=== PATIENT | male | born 1985 | race Caucasian/White ===

== ENCOUNTER 2023-05-05 15:39 | Emergency (ER) | payer OTHER, SELFPAY ==
[2023-05-05 15:43] VITALS: BP 125/72; PULSE 88; RESP 18; TEMP 36.1; O2SAT 97
--- NOTE | 2023-05-05 16:11 | ED_ITS ---
Documented by User: EVANGELIST Gonsales 05/05/23 16:14 HPI - Skin/Abscess/Foreign Bdy General Chief complaint: Skin/Abscess/Foreign Body Stated complaint: RASH Time Seen by Provider: 05/05/23 16:02 Source: patient Mode of arrival: walk-in Limitations: no limitations History of Present Illness HPI narrative: patient is a 37-year-old male presents to the Emergency Room with concerns of pruritic rash. Patient states symptoms started one week ago. He believes he was working outside with [employer] at the time. Notes lesions have not resolved. Denies fevers or chills. States he's been using some topicals with minimal to no relief typically works in a warm sweaty environment. Denies any difficulty breathing or shortness of breath. Patient appears in no distress. MD complaint: Reports rash Location: Denies generalized Quality: Reports pruritic Relieving factors: Reports cold therapy Exacerbating factors: Reports none Context: Reports none Treatments prior to arrival: Reports none Related Data Home Medications Medication Instructions Recorded Confirmed No Known Home Medications 05/05/23 05/05/23 Previous Rx's Medication Instructions Recorded prednisone 20 mg tablet 20 mg PO DAILY 10 days #10 tabs 05/05/23 Allergies Allergy/AdvReac Type Severity Reaction Status Date / Time amoxicillin Allergy Intermediate Verified 05/05/23 15:46 ampicillin Allergy Intermediate Verified 05/05/23 15:46 Penicillins Allergy Intermediate Verified 05/05/23 15:46 Review of Systems ROS Constitutional Denies: fever or chills Eyes Denies: change in vision Ears, nose, mouth, and throat Denies: throat pain or neck pain Cardiovascular Denies: chest pain or palpitations Respiratory Denies: shortness of breath Gastrointestinal Denies: abdominal pain or nausea Musculoskeletal Denies: back pain or neck pain Integumentary/Breast Reports: rash; Denies: itching Neurological Denies: headache Psychiatric Denies: anxiety Endocrine Denies: excessive urination Exam Narrative Exam Narrative: Vital Signs and nurse's notes are reviewed. The patient is not hypoxic. General: Alert, no acute distress, patient resting comfortably Skin: warm, intact, no pallor noted. The patient has evidence wispy erythema tous slightly raised rash, no evidence of cellulitis, distribution consistent with likely plan dermatitis. Involving bilateral forearms, proximal humerus bilaterally.. The patient has no evidence of petechiae, purpura, or vesicles. The patient has no sloughing of the skin. The patient does have blanching noted. The patient has no involvement of the palms, soles, or oral mucosa. Head: Normocephalic, atraumatic Eye: Normal conjunctiva, No exudates Ears, nose, throat: moist mucous membranes, there is no involvement of the oral mucosa, there is no lip or tongue swelling. The patient has airway patent. The patient has no tonsillar hypertrophy or swelling to the posterior oropharynx. No evidence of Vesicles. Neck: The patient has no masses, warmth, or erythema. The patient has no meningeal signs. The patient has no nuchal rigidity noted. Cardiovascular: Regular Rate and Rhythm Respiratory: No acute distress, tachypnea, mild rhonchi and wheezing noted in bilateral lung alaniz. No round noted. No retractions or stridor. Abdomen:denies abdominal pain Musculoskeletal: Normal range of motion, no calf tenderness noted bilaterally, no edema noted. Negative Cliff's sign bilaterally. no evidence of cyanosis or mottling noted to the extremities. Pulses intact. Neurological: alert and oriented x4, normal speech, normal motor, normal sensory Psychiatric: Cooperative Constitutional Vital Signs, click to edit/add: Last Vital Signs Temp 97 F L 05/05/23 15:43 Pulse 88 05/05/23 15:43 Resp 18 05/05/23 15:43 BP 125/72 05/05/23 15:43 Pulse Ox 97 05/05/23 15:43 O2 Del Method Room Air 05/05/23 15:43 Course Vital Signs Vital signs: Vital Signs Temperature 97 F L 05/05/23 15:43 Pulse Rate 88 05/05/23 15:43 Respiratory Rate 18 05/05/23 15:43 Blood Pressure 125/72 05/05/23 15:43 Pulse Oximetry 97 05/05/23 15:43 Oxygen Delivery Method Room Air 05/05/23 15:43 Temperature 97 F L 05/05/23 15:43 Pulse Rate 88 05/05/23 15:43 Respiratory Rate 18 05/05/23 15:43 Blood Pressure 125/72 05/05/23 15:43 Pulse Oximetry 97 05/05/23 15:43 Oxygen Delivery Method Room Air 05/05/23 15:43 MDM - Skin/Abscess/Foreign Bdy MDM Narrative Medical decision making narrative: discussed presentation. Patient consistent with plan dermatitis. Recommend washing any clothes of oil that he is working with. caution with [id number] anti-itch medication which may cause sedation while he is wo rking. Patient agreeable to a prednisone taper. Given 1st dose here, will take two tabs a day for five days and one tablet day for five days. Total #15 tabs. This was communicated to the pharmacy verbally in addition to the electronic prescription. Patient thankful. The patient is to followup with primary care physician in next 2-3 days or to return to the emergency department should any of the signs or symptoms worsen or new symptoms develop. Patient had questions answered. The patient agrees with the following Diagnosis and Treatment plan and the patient will be discharged home. Discharge Plan Discharge Chief Complaint: Skin/Abscess/Foreign Body Clinical Impression: Allergic dermatitis due to poison maureen Patient Disposition: Home, Self-Care Time of Disposition Decision: 16:07 Condition: Good Prescriptions / Home Meds: New prednisone 20 mg tablet 20 mg PO DAILY 10 Days Qty: 10 0RF Rx Instructions: 2 tabs daily for 5 days then 1 tab daily for 5 days No Action No Known Home Medications Instructions: Poison Maureen (ED) Stand Alone Forms: Portal Instructions Referrals: Davonte Kohler MD [Primary Care Provider] - 1 week Discharge Date/Time: 05/05/23 16:18 Documented by User: Rae Geiger MD 05/05/23 17:49 HPI - Skin/Abscess/Foreign Bdy General Chief complaint: Skin/Abscess/Foreign Body Stated complaint: RASH Time Seen by Provider: 05/05/23 16:02 Related Data Home Medications Medication Instructions Recorded Confirmed No Known Home Medications 05/05/23 05/05/23 Previous Rx's Medication Instructions Recorded prednisone 20 mg tablet 20 mg PO DAILY 10 days #10 tabs 05/05/23 Allergies Allergy/AdvReac Type Severity Reaction Status Date / Time amoxicillin Allergy Intermediate Verified 05/05/23 15:46 ampicillin Allergy Intermediate Verified 05/05/23 15:46 Penicillins Allergy Intermediate Verified 05/05/23 15:46 Exam Constitutional Vital Signs, click to edit/add: Last Vital Signs Temp 97 F L 05/05/23 15:43 Pulse 88 05/05/23 15:43 Resp 18 05/05/23 15:43 BP 125/72 05/05/23 15:43 Pulse Ox 97 05/05/23 15:43 O2 Del Method Room Air 05/05/23 15:43 Course Vital Signs Vital signs: Vital Signs Temperature 97 F L 05/05/23 15:43 Pulse Rate 88 05/05/23 15:43 Respiratory Rate 18 05/05/23 15:43 Blood Pressure 125/72 05/05/23 15:43 Pulse Oximetry 97 05/05/23 15:43 Oxygen Delivery Method Room Air 05/05/23 15:43 Temperature 97 F L 05/05/23 15:43 Pulse Rate 88 05/05/23 15:43 Respiratory Rate 18 05/05/23 15:43 Blood Pressure 125/72 05/05/23 15:43 Pulse Oximetry 97 05/05/23 15:43 Oxygen Delivery Method Room Air 05/05/23 15:43 MDM - Skin/Abscess/Foreign Bdy MDM Narrative Medical decision making narrative: discussed presentation. Patient consistent with plan dermatitis. Recommend washing any clothes of oil that he is working with. caution with [id number] anti-itch medication which may cause sedation while he is working. Patient agreeable to a prednisone taper. Given 1st dose here, will take two tabs a day for five days and one tablet day for five days. Total #15 tabs. This was communicated to the pharmacy verbally in addition to the electronic prescription. Patient thankful. The patient is to followup with primary care physician in next 2-3 days or to return to the emergency department should any of the signs or symptoms worsen or new symptoms develop. Patient had questions answered. The patient agrees with the following Diagnosis and Treatment plan and the patient will be discharged home. Attending physician attestation I have reviewed the mid-level documentation, agree with the documentation, medical decision making and treatment plan as outlined by the mid-level provider. Discharge Plan Discharge Chief Complaint: Skin/Abscess/Foreign Body Clinical Impression: Allergic dermatitis due to poison maureen Patient Disposition: Home, Self-Care Time of Disposition Decision: 16:07 Condition: Good Prescriptions / Home Meds: New prednisone 20 mg tablet 20 mg PO DAILY 10 Days Qty: 10 0RF Rx Instructions: 2 tabs daily for 5 days then 1 tab daily for 5 days No Action No Known Home Medications Instructions: Poison Maureen (ED) Stand Alone Forms: Portal Instructions Referrals: Davonte Kohler MD [Primary Care Provider] - 1 week Discharge Date/Time: 05/05/23 16:18
[2023-05-05] MEDS: PREDNISONE 20 MG TABLET 60 MG PO (16:17)
== END 2023-05-05 16:18 | disposition home or self-care (01) ==
PROVIDERS: Emergency Provider Emergency Medicine; PCP Family Medicine
DX: L23.7 Allergic contact dermatitis due to plants, except food (principal)
CPT/HCPCS: 99283

== ENCOUNTER 2023-05-27 06:46 | Outpatient (OUT) | payer OTHER, SELFPAY ==
[2023-05-27 07:04] LABS: Basophils Absolute Auto 0.1 10^3/uL (0.0-0.1); Basophils Percent Auto 0.5 % (0.2-2.0); Eosinophils Absolute Auto 0.3 10^3/uL (0.0-0.7); Eosinophils Percent Auto 3.1 % (0.9-7.0); Hematocrit 42.9 % (42.0-54.0); Hemoglobin 14.3 g/dL (14.0-18.0); Immature Granulocytes Abs Auto 0.01 10^3/uL (0.00-0.03); Immature Granulocytes Pct Auto 0.1 % (0.0-0.5); Lymphocytes Absolute Auto 2.9 10^3/uL (1.2-3.8); Lymphocytes Percent Auto 32.1 % (20.5-60.0); Mean Corpuscular HGB Conc 33.3 g/dL (29.9-35.2); Mean Corpuscular Hemoglobin 29.3 pg (25.9-34.0); Mean Corpuscular Volume 87.9 fL (80.0-94.0); Mean Platelet Volume 9.9 fL (9.5-13.5); Monocytes Absolute Auto 0.6 10^3/uL (0.3-0.8); Neutrophils Absolute Auto 5.3 10^3/uL (1.4-6.5); Neutrophils Percent Auto 58.2 % (43.0-75.0); Platelet Count 220 10^3/uL (150-450); Red Blood Count 4.88 10^6/uL (4.70-6.10); Red Cell Distribution Width 13.6 % (11.0-15.0); White Blood Count 9.1 10^3/uL (4.0-11.0)
[2023-05-27 07:33] LABS: Estimated Average Glucose 88 mg/dL; Glycohemoglobin A1C 4.7 % (4.5-6.2)
[2023-05-27 07:44] LABS: Alanine Aminotransferase 24 U/L (16-63); Albumin Globulin Ratio 1.1; Alkaline Phosphatase 70 U/L (46-116); Aspartate Amino Transferase 16 U/L (15-37); BUN Creatinine Ratio 8.6; Bilirubin Direct 0.1 mg/dL (0.0-0.2); Bilirubin Total 0.4 mg/dL (0.2-1.0); Calcium 9.6 mg/dL (8.5-10.1); Carbon Dioxide 29.9 mmol/L (21.0-32.0); Chloride 104 mmol/L (98-107); Chol HDL Ratio 3.9; Cholesterol 184 mg/dL (<=200); Estimated GFR (African America >60 (>=60); Estimated GFR (Non-African Ame >60 (>=60); Globulin 3.6 g/dL; Glucose 102 mg/dL (74-106); HDL Cholesterol 47 mg/dL (40-60); LDL Cholesterol Calculated 126.8 mg/dL; Potassium 3.9 mmol/L (3.5-5.1); Sodium 139 mmol/L (136-145); Thyroid Stimulating Hormone 2.297 uIU/mL (0.358-3.740); Total Protein 7.6 g/dL (6.4-8.2); Triglycerides 51 mg/dL (<=150); VLDL CHOLESTEROL 10.2 mg/dL
== END 2023-05-27 06:47 | disposition home or self-care (01) ==
LOC: LAB 06:46
PROVIDERS: PCP Family Medicine; Visit Provider Family Medicine
DX: Z00.00 Encounter for general adult medical examination without abnormal findings (principal)
CPT/HCPCS: 36415; 80048; 80061; 80076; 83036; 84443; 85025

== ENCOUNTER 2023-08-13 11:39 | Emergency (ER) | payer OTHER, SELFPAY ==
[2023-08-13 11:46] VITALS: BP 149/87; PULSE 72; RESP 18; TEMP 37.3; O2SAT 100; BMI 25.1
[2023-08-13 12:16] LABS: Bilirubin Urine NEGATIVE (NEGATIVE); Blood Urine LARGE (NEGATIVE); Clarity Urine CLEAR (CLEAR); Color Urine RED (YELLOW); Glucose Urine UA NEGATIVE (NEGATIVE); Ketones Urine NEGATIVE (NEGATIVE); Leukocyte Esterase Urine NEGATIVE (NEGATIVE); Nitrite Urine NEGATIVE (NEGATIVE); Protein Urine TRACE mg/dL (NEG/TRACE); Specific Gravity Urine 1.025 (1.005-1.025)
[2023-08-13 12:17] LABS: Urine Microscopic Indicated YES
[2023-08-13 12:21] LABS: WBC Urine NONE SEEN #/HPF (NONE SEEN)
[2023-08-13 12:22] LABS: Bacteria Urine NONE SEEN #/HPF (NONE SEEN); Cast Seen? NONE SEEN #/LPF (NONE SEEN); Crystals Seen? None Seen #/HPF (None Seen); Mucus Urine NONE SEEN (NONE SEEN); RBC Urine >100 #/HPF (0-2); Squamous Epithelial Cell Urine RARE #/LPF (NONE/RARE); Urine Culture Indicated NO
[2023-08-13 13:09] VITALS: BP 129/65; PULSE 85; RESP 18; O2SAT 98
--- NOTE | 2023-08-13 13:56 | CT_ITS ---
The [address] [address] Patient Name: MECCA ABRAHAM MRN: [id number] date: 1985 Sex: M Assigned Patient Location: ER Current Patient Location: Accession/Order Number: [id number] Exam Date: 08/13/2023 13:50 Report Date: 08/13/2023 15:07 At the request of: ROSA HERNANDEZ Procedure: CT abdomen pelvis wo con EXAM: CT abdomen pelvis wo con 08/13/2023 COMPARISON STUDY: None TECHNIQUE: 3 mm sections were obtained from the lung bases through the pubic symphysis without use of contrast. Coronal and sagittal reconstructed images were obtained HISTORY: flank pain and hematuria CT ABDOMEN: Heart size is normal. Lung bases are clear. Liver, gallbladder, spleen, pancreas, adrenals and left kidney appear unremarkable. A calculus near the right ureteropelvic junction on coronal image 48 measures 4 mm. This is identified on axial image 49. Ureters otherwise demonstrate normal caliber. CT PELVIS: The urinary bladder, prostate and seminal vesicles appear unremarkable. Constipation is suggested. Bowel pattern is nonobstructive. Negative for appendicitis or diverticulitis. Aorta is nonaneurysmal. No significantly enlarged adenopathy or ascites noted. CT/CT abdomen pelvis wo con IMPRESSION: 1. There is a 4 mm calculus located near the right ureterovesical junction without evidence of significant hydronephrosis. 2. Mild constipation. Electronically authenticated by: BESSIE BOLAÑOS Date: 08/13/2023 15:07
--- NOTE | 2023-08-13 17:27 | ED.MALEGU1 ---
HPI - Male Genitourinary General Chief complaint: Urogenital-Male Stated complaint: Hematuria Time Seen by Provider: 08/13/23 13:06 Source: patient Mode of arrival: walk-in Limitations: no limitations History of Present Illness HPI Narrative: The patient is coming to us after he had flank pain yesterday on the right side radiating to the groin area that resolved and he today had some blood in urine the patient denies any nausea vomiting or any burning with urination or fever or chills Related Data Previous Rx's Medication Instructions Recorded prednisone 20 mg tablet 20 mg PO DAILY 10 days #10 tabs 05/05/23 tamsulosin 0.4 mg capsule (Flomax) 0.4 mg PO DAILY #10 caps 08/13/23 Allergies Allergy/AdvReac Type Severity Reaction Status Date / Time amoxicillin Allergy Intermediate Verified 05/05/23 15:46 ampicillin Allergy Intermediate Verified 05/05/23 15:46 Penicillins Allergy Intermediate Verified 05/05/23 15:46 Review of Systems ROS Status of ROS 10 or more systems reviewed and unremarkable except as noted in history and below [facility] Social History Smoking status: Never smoker Exam Narrative Exam Narrative: Nurses notes and vital signs reviewed and patient is not hypoxic. General: Well-appearing and in no apparent distress. Skin: Warm, dry, no pallor noted. No rash. Head: Normocephalic, atraumatic. Neck: Supple, non-tender. Eye: Pupils are equal, round and EOMI. No scleral icterus. Ears, Nose, Mouth, and Throat: TM are clear, no nasal mucosal hypertrophy. Oral mucosa is moist, no posterior oropharynx erythema, uvula is mid-line Cardiovascular: Regular Rate and Rhythm without murmur, gallop or rub. Respiratory: No accessory muscle use or respiratory distress. Lungs are clear to auscultation, no wheezing, rales or rhonchi Chest Wall: no tenderness Back: No midline thoracic or lumbar vertebral tenderness. No CVA tenderness Musculoskeletal: normal ROM, no calf or popliteal tenderness, no lower extremity edema/swelling GI: Abdomen is soft, non-distended. Normal bowel sounds. No masses appreciated. No tenderness to palpation. No rebound, guarding, or rigidity noted. Neurological: A&O x4. No cranial nerve dysfunction observed. No truncal ataxia. Moves all extremities. Sensation intact. Psychiatric: Cooperative and interactive. Normal mood and affect. Constitutional Vital Signs, click to edit/add: Last Vital Signs Temp 99.1 F 08/13/23 11:46 Pulse 85 08/13/23 13:09 Resp 18 08/13/23 13:09 BP 129/65 08/13/23 13:09 Pulse Ox 98 08/13/23 13:09 O2 Del Method Room Air 08/13/23 11:46 Course Vital Signs Vital signs: Vital Signs Temperature 99.1 F 08/13/23 11:46 Pulse Rate 72 08/13/23 11:46 Respiratory Rate 18 08/13/23 11:46 Blood Pressure 149/87 H 08/13/23 11:46 Pulse Oximetry 100 08/13/23 11:46 Oxygen Delivery Method Room Air 08/13/23 11:46 Temperature 99.1 F 08/13/23 11:46 Pulse Rate 85 08/13/23 13:09 Respiratory Rate 18 08/13/23 13:09 Blood Pressure 129/65 08/13/23 13:09 Pulse Oximetry 98 08/13/23 13:09 Oxygen Delivery Method Room Air 08/13/23 11:46 MDM - Male Genitourinary MDM Narrative Medical decision making narrative: The patient presented to us mostly with hematuria the urinalysis with confirming that and he had a CAT scan without contrast that confirmed a 4 mm kidney stone in the right side with no obstruction or hydronephrosis The patient was discharged home with Flomax instructed on hydration The patient also was provided with a strainer instructed that he is to come back in case of any new symptoms including pain or fever or increasing hematuria Refer to urology as needed The patient is to follow up with primary care physician in next 2-3 days or to return to the emergency department should any of the signs or symptoms worsen or new symptoms develop. The patient agrees with the following Diagnosis and Treatment plan and the patient will be discharged home. Lab Data Labs: Lab Results 08/13/23 Range/Units 11:50 Urine Color Red A (YELLOW) Urine Clarity Clear (CLEAR) Urine pH 7.0 (5.0-9.0) Ur Specific [place] 1.025 (1.005-1.025) Urine Protein Trace (NEG/TRACE) mg/dL Urine Glucose (UA) Negative (NEGATIVE) mg/dL Urine Ketones Negative (NEGATIVE) mg/dL Urine Occult Blood Large A (NEGATIVE) Urine Nitrite Negative (NEGATIVE) Urine Bilirubin Negative (NEGATIVE) Urine Urobilinogen 1.0 (0.2-1.0) EU/dL Ur Leukocyte Esterase Negative (NEGATIVE) Urine RBC >100 A (0-2) #/HPF Urine WBC None seen (NONE SEEN) #/HPF Ur Squamous Epith Cells Rare (NONE/RARE) #/LPF Urine Crystals None seen (None Seen) #/HPF Urine Bacteria None seen (NONE SEEN) #/HPF Urine Casts None seen (NONE SEEN) #/LPF Urine Mucus None seen (NONE SEEN) Ur Culture Indicated? No Discharge Plan Discharge Chief Complaint: Urogenital-Male Clinical Impression: Kidney calculus Patient Disposition: Home, Self-Care Time of Disposition Decision: 14:51 Condition: Good Mode of Transportation: Private Vehicle Prescriptions / Home Meds: New tamsulosin [Flomax] 0.4 mg capsule 0.4 mg PO DAILY Qty: 10 0RF No Action prednisone 20 mg tablet 20 mg PO DAILY 10 Days Qty: 10 0RF Rx Instructions: 2 tabs daily for 5 days then 1 tab daily for 5 days Instructions: Kidney Stones (ED) Stand Alone Forms: Portal Instructions Referrals: Davonte Kohler MD [Primary Care Provider] - 1 week Faisal Jane MD [Physician] - 1 week Discharge Date/Time: 08/13/23 15:02
== END 2023-08-13 15:02 | disposition home or self-care (01) ==
PROVIDERS: Emergency Provider Emergency Medicine; PCP Family Medicine
DX: N20.0 Calculus of kidney (principal)
CPT/HCPCS: 74176; 81001; 99284

== ENCOUNTER 2023-10-07 18:45 | Emergency (ER) | payer OTHER, SELFPAY ==
[2023-10-07] VITALS (11 sets, daily range): BP systolic 115–128; BP diastolic 61–73; PULSE 76–96; RESP 16–24; TEMP 37.7–38; O2SAT 97–98; BMI 25.1
--- OUTSIDE RECORDS SUMMARY | 2023-10-07 18:50 | XMS_ITS | CCD ---
Author Name Unknown Address [address] [place] [address] Organization [facility] Care Team Providers Care Product Support Sales Representative Name Role Phone Reg CARMENRancho Unavailable [phone] ANDREE, DR OPAL Patterson Attending Unavailable ANDREE, DR OPAL aPtterson Consulting Unavailable ANDREE, DR OPAL Patterson Admitting Unavailable CHAIM, DR JAZMIN Leong Primary Care Unavailable CHEPE WEAVER Consulting Unavailable CHAIM, DR JAZMIN Leong Attending Unavailable CHAIM, DR JAZMIN Leong Consulting Unavailable CHAIM, DR JAZMIN Leong Primary Care Unavailable CHAIM, DR JAZMIN Leong Admitting Unavailable ANTONY, DR CHEPE Patterson Consulting Unavailable CHIDI LUONG Attending Unavailable CHERISE, CHIDI Admitting Unavailable CHAIM, DR JAZMIN Leong Primary Care Unavailable CHIDI LUONG Consulting Unavailable Allergies Allergy Classification Reported Allergen(s) Allergy Type Date of Onset Reaction(s) Facility (2 sources) Azithromycin Drug Allergy anaphylaxis [facility] Other (2 sources) Iodine Drug Allergy swelling [facility] Other (2 sources) Penicillin V Drug Allergy swelling [facility] Other (1 source) Azithromycin Drug Allergy [facility] (1 source) Penicillin Drug Allergy [facility] (1 source) Iodine and Iodide Containing Products Drug allergy (disorder) [facility] Medications Current Medications Medication Drug Class(es) Dates Sig (Normalized) Sig (Original) cholecalciferol 0.05 mg oral capsule (2 sources) Vitamin D take 1 capsule by mouth every twenty-four hours Vitamin D3 50 MCG (1999) 1 capsule Orally Once a day Active ketorolac tromethamine 10 mg oral tablet (2 sources) Nonsteroidal Anti-inflammatory Drug, Cyclooxygenase Inhibitor take 1 tablet by mouth every six hours at mealtime as needed Ketorolac Tromethamine 10 MG 1 tablet with food or milk as needed Orally every 6 hrs Active Problems Active Problems Problem Classification Problem Date Documented Da te Episodic/Chronic Administrative/social admission (1 source) Encounter for issue of repeat prescription; Translations: [ENC FOR ISSUE REPEAT PRESCRIPTION] Onset: 08-22-2022 Episodic Influenza (1 source) Influenza due to other identified influenza virus with other respiratory manifestations; Translations: [FLU D/T OTH ID FLU VIR OTH RSP MANF] Onset: 08-22-2022 Episodic Nutritional deficiencies (1 source) Vitamin D deficiency, unspecified; Translations: [VITAMIN D DEFICIENCY UNSPECIFIED] Onset: 05-13-2022 Chronic Unclassified (2 sources) COUGH, UNSPECIFIED; Translations: [COUGH, UNSPECIFIED] Onset: 08-22-2022 Unclassified (1 source) CONTACT W/AND (SUSP) EXPOS COVID-19; Translations: [CONTACT W/AND (SUSP) EXPOS COVID-19] Onset: 08-22-2022 Past or Other Problems Problem Classification Problem Date Documented Da te Episodic/Chronic E Codes: Natural/environment (1 source) Exposure to other specified factors, initial encounter; Translations: [EXPOSURE OTHER SPEC FACTORS INITIAL] Onset: 11-04-2021 Episodic Fracture of upper limb (3 sources) Nondisplaced fracture of distal phalanx of left middle finger, initial encounter for closed fracture; Translations: [Displaced fracture of distal phalanx of left middle finger, initial encounter for closed fracture] Onset: 10-06-2021 Resolved: 11-24-2021 Episodic Other injuries and conditions due to external causes (3 sources) Other specified injuries of left wrist, hand and finger(s), initial encounter; Translations: [OTH SPEC INJ LT WRST HAND FNGR INIT] Onset: 10-02-2021 Episodic Unclassified (1 source) COUGH, UNSPECIFIED; Translations: [COUGH, UNSPECIFIED] Onset: 08-18-2022 Results Test Name Value Interpretation Reference Range Facility Covid-19 PCR ([facility])on SARS-CoV-2 (COVID-19) RNA BRANDI+probe Ql (Unsp spec) Not detected Normal NOT DETECTED [facility] Comment on above: Result Comment: When diagnostic testing is negative, the possibility of a false negative should be considered in the context of a patient's recent exposures and the presence of clinical signs and symptoms consistent with SARS-CoV-2. This test is not yet approved or cleared by the [place] FDA. When there are no FDA-approved or cleared tests available, and other criteria are met, FDA can make tests available under an emergency access mechanism called an Emergency Use Authorization (EUA). The EUA for this test is supported by the Education Program Coordinator of Health and Human Service's declaration that circumstances exist to justify the emergency use of in vitro diagnostics for the detection and/or diagnosis of the virus that causes COVID-19. This EUA will remain in effect for the duration of the COVID-19 declaration justifying emergency of IVDs, unless it is terminated or revoked by the FDA (after which the test may no longer be used). Performed By: #### C VDTBH ####[facility] [address] [place] [address]Dr. Hailee Bourgeois GROUP A STREP CULTUREon -0 S. pyogenes Ag Ql (Unsp spec) Culture Observations: NEGATIVE FOR GROUP A STREPTOCOCCUS. Normal [facility] Comment on above: Performed By: #### S SCRN, GRASTCX #### [facility] [address] [place] [address] Dr. Hailee Bourgeois INFLUENZA A AND B AGon 08-18 INFLUBNEGH SEE BELOW Normal [facility] Comment on above: Result Comment: Nega tive for Flu B protein antigen. Infection due to Flu B cannot be ruled out. Flu B antigen in the sample may be below the detection limit of the test. Performed By: #### I NFLUAB #### [facility] [address] [place] [address] Dr. Hailee Bourgeois INFLUENZA A AG Positive Abnormal NEGATIVE SEE COMMENT [facility] Comment on above: Performed By: #### I NFLUAB #### [facility] [address] [place] [address] Dr. Hailee Bourgeois INFLUENZA B AG Negative Normal NEGATIVE SEE COMMENT [facility] Comment on above: Performed By: #### I NFLUAB #### [facility] [address] [place] [address] Dr. Hailee Bourgeois INFLUPOSH SEE BELOW Normal [facility] Comment on above: Result Comment: NOTE : Live attenuated influenzae vaccine viruses can cause a positive result for a rapid influenza diagnostic test if administered up to 7 days prior to rapid testing. Performed By: #### I NFLUAB #### [facility] [address] [place] [address] [address] Hailee Bourgeois INTERNAL CONTROLS Within Normal Limits Normal Wi thin Normal Limits [facility] Comment on above: Performed By: #### I NFLUAB #### [facility] [address] [place] [address] [address] Hailee Bourgeois STREPT SCREENon 08-18-2022 STREP SCREEN A Negative Normal NEGATIVE [facility] Comment on above: Performed By: #### S SCRN, GRASTCX #### [facility] [address] [place] [address] [address] Hailee Bourgeois XR CHEST 1 Von 08-18-2022 XR CHEST 1 V EXAMINATION: XR CHES T 1 V HISTORY: COUGH , chest pain, shortness of breath COMPARISON: No relevant comparison available. FINDINGS: LUNGS: No significant pulmonary parenchymal abnormalities. VASCULATURE: No increased pulmonary vasculature. PLEURA: No pneumothorax, effusion, or pleural thickening. CARDIAC: No cardiomegaly or cardiac silhouette abnormality. MEDIASTINUM: No visible mass or adenopathy. BONES: No fracture or visible bone lesion. OTHER: Negative. IMPRESSION: 1. No acute cardiopulmonary process. Electronically authenticated by: CHEPE HARDY Date: 2022-08-18 14:53 Normal [facility] VIT D 25-[place] LABCORPon 2021 Vitamin D, 25-Hydroxy 31.7 ng/mL Normal 30.0-100.0 [facility] Comment on above: Result Comment: Gia min D deficiency has been defined by the [place] of [employer] and an Endocrine Society practice guideline as a level of serum 25-OH vitamin D less than 20 ng/mL (1,2). The Endocrine Society went on to further define vitamin D insufficiency as a level between 21 and 29 ng/mL (2). 1. IOM ([place] of [employer]). 2010. Dietary reference intakes for calcium and D. [place]: The National Academies Press. 2. Shira MF, Anjelica ASH, Tommy DAIGLE, et al. Evaluation, treatment, and prevention of vitamin D deficiency: an Endocrine Society clinical practice guideline. JCEM. 2010; 96(7):1911-30. Performed By: #### V ITADLC ####[facility] [address] [place], [place] [address]TfDr. Hailee Bourgeois CBC AUTO DIFFon 05-12-2022 BASO # 0.1 103/ul Normal 0.0-0.1 [facility] Comment on above: Performed By: #### C BC #### [facility] [address] [address] [address] Hailee Bourgeois Basophils/100 WBC (Bld) 0.6 % Normal 0.2-2.0 [facility] Comment on above: Performed By: #### C BC #### [facility] [address] [address] [address] Hailee Bourgeois EO # 0.2 103/ul Normal 0.0-0.7 [facility] Comment on above: Performed By: #### C BC #### [facility] [address] [address] [address] Hailee Bourgeois Eosinophils/100 WBC (Bld) 2.1 % Normal 0.9-7.0 [facility] Comment on above: Performed By: #### C BC #### [facility] [address] [address] [address] Hailee Bourgeois Erythrocyte distribution width (RBC) [Ratio] 13.5 % Normal 11.0-15.0 [facility] Comment on above: Performed By: #### C BC #### [facility] [address] [address] [address] Hailee Bourgeois Hematocrit (Bld) [Volume fraction] 44.5 % Normal 42.0-54.0 [facility] Comment on above: Performed By: #### C BC #### [facility] [id number] Hailee Bourgeois Hemoglobin (Bld) [Mass/Vol] 15.0 g/dL Normal 14.0-18.0 [facility] Comment on above: Performed By: #### C BC #### [facility] [address] [place] [address] Dr. Hailee Bourgeois IG # 0.02 10e3/ul Normal 0.00-0.03 [facility] Comment on above: Performed By: #### C BC #### [facility] [address] [place] [address] Dr. Hailee Bourgeois IG % 0.2 % Normal 0.0-0.5 [facility] Comment on above: Performed By: #### C BC #### [facility] [address] [place] [address] Dr. Hailee Bourgeois LYMPH # 2.0 103/ul Normal 1.2-3.8 [facility] Comment on above: Performed By: #### C BC #### [facility] [address] [place] [address] Dr. Hailee Bourgeois Lymphocytes/100 WBC (Bld) 24.5 % Normal 20.5-60.0 [facility] Comment on above: Performed By: #### C BC #### [facility] [address] [place] [address] Dr. Hailee Bourgeois MANUAL DIFF REQ NO Normal [facility] Comment on above: Performed By: #### C BC #### [facility] [address] [place] [address] Dr. Hailee Bourgeois MCH (RBC) [Entitic mass] 28.5 pg Normal 25.9-34.0 [facility] Comment on above: Performed By: #### C BC #### [facility] [address] [place] [address] Dr. Hailee Bourgeois MCHC (RBC) [Mass/Vol] 33.7 g/dL Normal 29.9-35.2 [facility] Comment on above: Performed By: #### C BC #### [facility] [address] [place] [address] Dr. Hailee Bourgeois MCV (RBC) [Entitic vol] 84.6 fL Normal 80.0-94.0 [facility] Comment on above: Performed By: #### C BC #### [facility] [address] [place] [address] Dr. Hailee Bourgeois MONO # 0.6 103/ul Normal 0.3-0.8 [facility] Comment on above: Performed By: #### C BC #### [facility] [address] [place] [address] Dr. Hailee Bourgeois Monocytes/100 WBC (Bld) 7.0 % Normal 1.7-12.0 [facility] Comment on above: Performed By: #### C BC #### [facility] [address] [place] [address] Dr. Hialee Bourgeois NEUT # 5.3 103/ul Normal 1.4-6.5 [facility] Comment on above: Performed By: #### C BC #### [facility] [address] [place] [address] Dr. Hailee Bourgeois Neutrophils/100 WBC (Bld) 65.6 % Normal 43.0-75.0 [facility] Comment on above: Performed By: #### C BC #### [facility] [address] [place] [address] Dr. Hailee Bourgeois Platelet mean volume (Bld) [Entitic vol] 10.6 fL Normal 9.5-13.5 [facility] Comment on above: Performed By: #### C BC #### [facility] [address] [place] [address] Dr. Hailee Bourgeois PLT 216 103/ul Normal 150-450 [facility] Comment on above: Performed By: #### C BC #### [facility] [address] [place] [address] Dr. Hailee Bourgeois RBC 5.26 106/ul Normal 4.70-6.10 [facility] Comment on above: Performed By: #### C BC #### [facility] [address] [place] [address] Dr. Hailee Bourgeois WBC 8.1 103/ul Normal 4.0-11.0 [facility] Comment on above: Performed By: #### C BC #### [facility] [address] [place] [address] Dr. Hailee Bourgeois GLYCOHEMOGLOBIN A1Con 2021 ADA RECOMMENDATION SEE BELOW Normal [facility] Comment on above: Result Comment: ADA RECOMMENDED LIMIT 4.0 - 6.0 ADA THERAPEUTIC TARGET < 7.0 ACTION SUGGESTED > 7.0 Performed By: #### A 1C ####[facility] [address] [place] [id number] Bourgeois Glucose [Mass/Vol] 91 mg/dL Normal [facility] [place] [facility] Comment on above: Performed By: #### A 1C ####[facility] [address] [place] [id number]. Hailee Bourgeois HbA1c (Bld) [Mass fraction] 4.8 % Normal 4.5-6.2 [facility] Comment on above: Performed By: #### A 1C ####[facility] [address] [place] [address]DrTaina Bourgeois LIPID PROFILEon 05-12-2022 CHOL-HDL RATIO NORM SEE BELOW Normal [facility] Comment on above: Result Comment: 3.3 - 4.4 LOW RISK 4.4 - 7.1 AVERAGE RISK 7.1 - 11.0 MODERATE RISK >11.0 HIGH RISK Performed By: #### T SH, LIPID, LIVER, BMP #### [facility] [address] [address] [address] Hailee Bourgeois Cholesterol [Mass/Vol] 195 mg/dL Normal <=200 [facility] Comment on above: Performed By: #### T SH, LIPID, LIVER, BMP #### [facility] [address] [address] [address] Hailee Bourgeois Cholesterol in HDL [Mass/Vol] 39 mg/dL Critically low 40-60 [facility] Comment on above: Performed By: #### T SH, LIPID, LIVER, BMP #### [facility] [address] [address] [address] Hailee Bourgeois Cholesterol in LDL [Mass/Vol] 138.2 mg/dL Normal [facility] Comment on above: Performed By: #### T SH, LIPID, LIVER, BMP #### [facility] [address] [address] [address] Hailee Bourgeois Cholesterol.total/Cho lesterol in HDL [Mass ratio] 5.0 {ratio} Normal [facility] Comment on above: Performed By: #### T SH, LIPID, LIVER, BMP #### [facility] [address] [address] [address] Hailee Bourgeois HDL NORMAL > or = 60 mg/dl - LO W CARDIOVASCULAR RISK <40 mg/dl - HIGH CARDIOVASCULAR RISK Normal [facility] Comment on above: Performed By: #### T SH, LIPID, LIVER, BMP #### [facility] [address] [address] [address] Hailee Bourgeois LDL CALC NORMAL SEE BELOW Normal [facility] Comment on above: Result Comment: <100 mg/dl OPTIMAL 100 - 129 mg/dl NEAR OR ABOVE OPTIMAL 130 - 159 mg/dl BORDERLINE HIGH 160 - 189 mg/dl HIGH >190 mg/dl VERY HIGH Performed By: #### T SH, LIPID, LIVER, BMP #### [facility] [address] [address] [address] Hailee Bourgeois Triglyceride [Mass/Vol] 89 mg/dL Normal <=150 [facility] Comment on above: Performed By: #### T SH, LIPID, LIVER, BMP #### [facility] [address] [address] [address] Hailee Bourgeois VLDL CALC 17.8 mg/dL Normal [facility] Comment on above: Performed By: #### T SH, LIPID, LIVER, BMP #### [facility] [address] [address] [address] Hailee Bourgeois LIVER PROFILEon 05-12-2022 Albumin [Mass/Vol] 4.3 g/dL Normal 3.4-5.0 [facility] [place] [facility] Comment on above: Performed By: #### T SH, LIPID, LIVER, BMP #### [facility] [address] [address] [address] Hailee Bourgeois Albumin/Globulin [Mass ratio] 1.3 {ratio} Normal [facility] Comment on above: Performed By: #### T SH, LIPID, LIVER, BMP #### [facility] [address] [address] [address] Hailee Bourgeois ALP [Catalytic activity/Vol] 77 U/L Normal 46-116 [facility] Comment on above: Performed By: #### T SH, LIPID, LIVER, BMP #### [facility] [address] [place] [address] Dr. Hailee Bourgeois ALT [Catalytic activity/Vol] 30 U/L Normal 16-63 [facility] Comment on above: Performed By: #### T SH, LIPID, LIVER, BMP #### [facility] [address] [place] [address] Dr. Hailee Bourgeois AST [Catalytic activity/Vol] 21 U/L Normal 15-37 [facility] Comment on above: Performed By: #### T SH, LIPID, LIVER, BMP #### [facility] [address] [place] [address] Dr. Hailee Bourgeois BILI, CONJUGATED 0.1 mg/dL Normal 0.0-0.2 [facility] Comment on above: Performed By: #### T SH, LIPID, LIVER, BMP #### [facility] [address] [place] [address] Dr. Hailee Bourgeois Bilirubin [Mass/Vol] 0.6 mg/dL Normal 0.2-1.0 [facility] Comment on above: Performed By: #### T SH, LIPID, LIVER, BMP #### [facility] [address] [place] [address] Dr. Hailee Bourgeois Globulin (S) [Mass/Vol] 3.4 g/dL Normal [facility] Comment on above: Performed By: #### T SH, LIPID, LIVER, BMP #### [facility] [address] [place] [address] Dr. Hailee Bourgeois Protein [Mass/Vol] 7.7 g/dL Normal 6.4-8.2 [facility] [place] [facility] Comment on above: Performed By: #### T SH, LIPID, LIVER, BMP #### [facility] [address] [place] [address] Dr. Hailee Bourgeois PROF CHEM 8 (BAS METB)on Anion gap [Moles/Vol] 11.3 mmol/L Normal [facility] Comment on above: Performed By: #### T SH, LIPID, LIVER, BMP #### [facility] [address] [address] [address] Hailee Bourgeois Calcium [Mass/Vol] 9.3 mg/dL Normal 8.5-10.1 [facility] Comment on above: Performed By: #### T SH, LIPID, LIVER, BMP #### [facility] [address] [address] [address] Hailee Bourgeois Chloride [Moles/Vol] 104 mmol/L Normal 98-107 [facility] Comment on above: Performed By: #### T SH, LIPID, LIVER, BMP #### [facility] [address] [address] [address] Hailee Bourgeois CO2 [Moles/Vol] 30.1 mmol/L Normal 21.0-32.0 [facility] Comment on above: Performed By: #### T SH, LIPID, LIVER, BMP #### [facility] [address] [address] [address] Hailee Bourgeois Creatinine [Mass/Vol] 1.00 mg/dL Normal 0.70-1.30 [facility] Comment on above: Performed By: #### T SH, LIPID, LIVER, BMP #### [facility] [address] [address] [address] Hailee Bourgeois EGFR-AF ITALIAN >60 Normal >=60 [facility] Comment on above: Performed By: #### T SH, LIPID, LIVER, BMP #### [facility] [address] [address] [address] Hailee Bourgeois EGFR-NON AF ITALIAN >60 Normal >=60 [facility] Comment on above: Performed By: #### T SH, LIPID, LIVER, BMP #### [facility] [address] [address] [address] Hailee Bourgeois Glucose [Mass/Vol] 96 mg/dL Normal 74-106 [facility] Comment on above: Performed By: #### T SH, LIPID, LIVER, BMP #### [facility] [address] [address] [address] Hailee Bourgeois Potassium [Moles/Vol] 3.4 mmol/L Critically low 3.5-5.1 [facility] Comment on above: Performed By: #### T SH, LIPID, LIVER, BMP #### [facility] [address] [address] [address] Hailee Bourgeois Sodium [Moles/Vol] 142 mmol/L Normal 136-145 [facility] Comment on above: Performed By: #### T SH, LIPID, LIVER, BMP #### [facility] [address] [address] [address] Hailee Bourgeois Urea nitrogen [Mass/Vol] 9.0 mg/dL Normal 7.0-18.0 [facility] Comment on above: Performed By: #### T DAVID, LIPID, LIVER, BMP #### [facility] [address] [address] [address] Hailee Bourgeois Urea nitrogen/Creatinine [Mass ratio] 9.0 mg/mg Normal [facility] Comment on above: Performed By: #### T DAVID, LIPID, LIVER, BMP #### [facility] [address] [place] [address] Dr. Hailee Bourgeois TSHon 05-12-2022 TSH 1.788 uIU/mL Normal 0.358-3.740 [facility] Comment on above: Performed By: #### T DAVID, LIPID, LIVER, BMP #### [facility] [address] [place] [address] Dr. Hailee Bourgeois XR hand LT min 3V*on 022 XR hand LT min 3V* [facility] [place] [address] XRay Report Signed Patient: Mecca Dunn MR#: [id number] 33 : 1985 Acct:[id number] Age/Sex: 36 / M ADM Date: 11/24/21 Loc: [facility] Room: Type: [facility] Attending Dr: Rancho Finney II, MD Ordering Provider: Rancho Finney MD Date of Service: 11/24/21 XR/XR hand LT min 3V*: Closed nondisplaced fracture of distal phalanx of left middl Copies to: Rancho Finney MD Left hand 11/24/2021. CLINICAL DATA: Follow-up left hand fracture. FINDINGS: 3 views of the left hand were obtained and are compared with a prior study 10/27/2021. There is redemonstration of a fracture of the third distal phalanx. There has been new bone formation at the fracture since the prior exam. Bony alignment is relatively stable. There is residual soft tissue swelling in the distal third finger. XR/XR hand LT min 3V* IMPRESSION: Healing left hand third distal phalanx fracture. Impression dictated by: Geoffrey Neri Jr., M.D.11/24/2021 11:13 AM Dictation Location: [place] [address] Transcribed By: [facility] 11/24/21 1113 Dictated By: Geoffrey Neri Jr, MD 11/24/21 1108 Signed By: 11/24/21 1113 Normal [facility] XR hand LT min 3V*on 022 XR hand LT min 3V* [facility] [place] [address] [place] [address] XRay Report Signed Patient: Mecca Dunn MR#: [id number] 33 : 1985 Acct:[id number] Age/Sex: 36 / M ADM Date: 10/27/21 Loc: [facility] Room: Type: [facility] Attending Dr: Rancho Finney II, MD Ordering Provider: Rancho Finney MD Date of Service: 10/27/21 XR/XR hand LT min 3V*: Closed nondisplaced fracture of distal phalanx of left middl Copies to: Rancho Finney MD XR hand LT min 3V* 10/27/2021 7:52 AM SIGNS AND SYMPTOMS: Follow-up fracture of the third digit PROTOCOL: Frontal, lateral, and oblique radiographs of the left hand COMPARISON: 10/02/2021 FINDINGS: There is a lucency in the distal phalanx of the third digit similar to the prior exam which appears to be well circumscribed and overall benign in nature. However, there is a pathologic fracture which is transversely oriented through the lucency similar to the prior exam with increasing bony resorption. The lucency measures 7 mm in greatest dimension. There is no significant change in alignment with similar 2 mm of dorsal subluxation of the distal fracture fragment. There is accompanying soft tissue along the distal phalanx similar to the prior exam. XR/XR hand LT min 3V* IMPRESSION: There is redemonstration of a suspected pathologic fracture accompanied by a 7 mm cystic lucency within the distal phalanx of the third digit. This is unchanged in alignment with slight interval increase in bony resorption at the margins of the fracture. Impression dictated by: Opal Wiggins M.D.10/27/2021 1:06 PM Dictation Location: [place] [address] Transcribed By: KM 10/27/21 1306 Dictated By: Opal Wiggins II, MD 10/27/21 1303 Signed By: 10/27/21 1306 [facility] XR HAND LT MIN 3Von 10-03-19 XR HAND LT MIN 3V XR HAND LT MIN 3V: HISTORY: Pain. COMPARISON: None available. TECHNIQUE: 3 radiographic view(s) obtained. FINDINGS: BONES/JOINT SPACES: Acute transverse fracture of the distal phalanx with minimal displacement. There is also a lytic lesion in this region measuring 7 x 5 mm. The fracture may therefore represent a pathologic fracture. Joint spaces appear normal. There are no other significant findings. SOFT TISSUES: Normal. IMPRESSION: Acute minimally displaced fracture of the third distal phalanx with a lytic lesion in this region, suspicious for pathologic fracture. Recommend follow-up MRI. Electronically authenticated by: CHEPE WEAVER Date: 2021-10-02 23:14 Normal [facility] Vital Signs Date Time Vital Sign Value Performing Clinician Ramonitai nichoals 10-06-2021 14:30-0500 Body height 180.34 cm [facility] 10-06-2021 14:30-0500 Body mass index (BMI) [Ratio] 24.4 kg/m2 [facility] Other [facility] Other 10-06-2021 14:30-0500 Body weight 79.38 kg [facility] Other [facility] Other Encounters Encounter Date Encounter Type Care Provider Facility Start: 08-18-2022 End: 08-18-[address] CHEPE HARDY Facility:[facility] Start: 05-13-2022 Encounter for genera l adult medical examination without abnormal findings DR JAZMIN RUCKER [facility] Start: 05-12-2022 End: 05-13-[address] JAZMIN RUCKER Facility:[facility] Start: 05-12-2022 End: 05-13-2022 Encounter for general adult medical examination without abnormal findings DR JAZMIN RUCKER Facility:[facility] Start: 11-24-2021 End: 11-24-2021 ambulatory [place] [place] [facility] Other [facility] Start: 11-24-2021 Office outpatient vi sit 25 minutes [place] [place] [facility] Start: 10-06-2021 ([facility]) [place] [facility] [employer] [facility] Start: 10-06-2021 End: 10-06-2021 ambulatory [facility] Other [facility] Start: 10-02-2021 End: 10-03-[address] OPAL CANDELARIO Facility:[facility] Payers Date Payer Category Payer Unknown [id number] 1985 Unknown [id number] 1985 Unknown [id number] 1959 Unknown [id number] [id number] [id number] 1959 Unknown [id number] Unknown [id number] Social History Date Type Detail Facility Sex Assigned At [facility] Other Sex Assigned At Sex Assigned At Bir th [facility] Other Evaluation note 11-24-2021 Note Date & Type Note Facility 11-24-2021 Evaluation note Encounter Date Diagnosis Assessment Notes Nov, Closed nondisplaced fracture of distal phalanx of left middle finger, initial encounter (ICD-10 - S62.663A) Nov, Other Overall patient is doing fantastic. He can continue doing all the activities that he would like as I have no restrictions at this time. He can come back if he has any issues moving forward or anything new in the future. Patient agreed. [facility] Other Evaluation note Note Date & Type Note Facility Evaluation note [facility] Other History general Narrative - Reported Note Date & Type Note Facility History general Narrative - Reported [facility] Other History general Narrative - Reported Note Date & Type Note Facility History general Narrative - Reported Type Medical History asthma [facility] Other Summary Purpose Family History No Family History Records FoundNo Family History Records Found Advance Directives No Advanced Directives Records FoundNo Advanced Directives Records Found Additional Source Comments (unrecognized sect ion and content) No Status Records FoundNo Status Records Found INFORMATION SOURCE (unrecogn ized section and content) DATE CREATED AUTHOR 02/11/2022 [facility] DATE CREATED AUTHOR AUTHOR'S ORGANIZ ATION 08/22/2022 [facility] REASON FOR VISIT (unrecogniz ed section and content) Recheck Left Hand FOR RECORDS PERTAINING TO PATIENTS WHO ARE OR HAVE BEEN ENROLLED IN A CHEMICAL DEPENDENCY/SUBSTANCEABUSE PROGRAM, SOME INFORMATION MAY BE OMITTED. This clinical summary was aggregated from multiple sources. Caution should be exercised in using it in the provision of clinical care. This summary normalizes information from multiple sources, and as a consequence, information in this document may materially change the coding, format and clinical context of patient data. In addition, data may be omitted in some cases. CLINICAL DECISIONS SHOULD BE BASED ON THE PRIMARY CLINICAL RECORDS. [facility]. provides no warranty or guarantee of the accuracy or completeness of information in this document.
--- NOTE | 2023-10-07 19:04 | XR_ITS ---
The [address] [address] Patient Name: MECCA ABRAHAM MRN: [id number] date: 1985 Sex: M Assigned Patient Location: ER Current Patient Location: ER Accession/Order Number: [id number] Exam Date: 10/07/2023 19:15 Report Date: 10/07/2023 19:46 At the request of: DAMARIS STACY Procedure: XR chest 1V CXR HISTORY: Chest pain COMPARISON: None. TECHNIQUE: 1 view chest submitted for review. FINDINGS: The lungs are adequately expanded without evidence of acute infiltrate or effusion. The cardiac silhouette measures within normal. Pulmonary vascularity is unremarkable. Osseous structures do not demonstrate any acute abnormality. XR/XR chest 1V IMPRESSION: No plain film evidence for acute cardiopulmonary disease. Electronically authenticated by: GWEN MCGRAW Date: 10/07/2023 19:46
--- NOTE | 2023-10-07 19:04 | ECG_ITS ---
The 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
--- NOTE | 2023-10-07 19:21 | ED_ITS ---
HPI - Chest Pain General Chief Complaint: Chest Pain Stated Complaint: chest pain Time Seen by Provider: 10/07/23 19:04 Source: patient Mode of arrival: walk-in Limitations: no limitations History of Present Illness HPI narrative: Two days ago the patient was sliding down a water slide at [facility] and landed awkwardly, injuring the right chest. He was also concerned that he might have swallowed too much water. No cough or fever since then. The area is painful to touch. No meds taken for the pain. No other symptoms and pain is non- radiating. Related Data Home Medications Medication Instructions Recorded Confirmed albuterol sulfate 90 mcg/actuation 1 inh inhalation Q6H PRN shortness 10/07/23 10/07/23 breath activated powder inhaler of breath Allergies Allergy/AdvReac Type Severity Reaction Status Date / Time amoxicillin Allergy Intermediate Verified 10/07/23 18:57 ampicillin Allergy Intermediate Verified 10/07/23 18:57 Penicillins Allergy Intermediate Verified 10/07/23 18:57 PFSH PFSH Social History Smoking status: Never smoker Exam Narrative Exam Narrative: Nurses notes and vital signs reviewed and patient is not hypoxic. afebrile General: Well-appearing and in no apparent distress. Skin: Warm, dry, no pallor noted. No rash to chest. Head: Normocephalic, atraumatic. Neck: Supple, non-tender. Eye: Pupils are equal, round and EOMI. No scleral icterus. Ears, Nose, Mouth, and Throat: Oral mucosa is moist Cardiovascular: Regular Rate and Rhythm without murmur, gallop or rub. Respiratory: No accessory muscle use or respiratory distress. Lungs are clear to auscultation, no wheezing, rales or rhonchi Chest Wall: anterior right chest wall tenderness without crepitus or subcutaneous emphysema Back: No midline thoracic or lumbar vertebral tenderness. Musculoskeletal: normal ROM without sign of long bone fracture GI: Abdomen is soft, non-distended. Normal bowel sounds. No tenderness to palpation. No rebound, guarding, or rigidity noted. Neurological: A&O x4. No cranial nerve dysfunction observed. No truncal ataxia. Moves all extremities. Sensation intact. Psychiatric: Cooperative and interactive. Normal mood and affect. Constitutional Vital Signs, click to edit/add: Last Vital Signs Temp 100 F 10/07/23 18:52 Pulse 84 10/07/23 19:50 Resp 22 10/07/23 19:50 BP 122/66 10/07/23 19:43 Pulse Ox 97 10/07/23 19:50 O2 Del Method Room Air 10/07/23 18:52 Course Vital Signs Vital signs: Vital Signs Temperature 100 F 10/07/23 18:52 Pulse Rate 87 10/07/23 18:52 Respiratory Rate 16 10/07/23 18:52 Blood Pressure 128/73 10/07/23 18:52 Pulse Oximetry 98 10/07/23 18:52 Oxygen Delivery Method Room Air 10/07/23 18:52 Temperature 100 F 10/07/23 18:52 Pulse Rate 84 10/07/23 19:50 Respiratory Rate 22 10/07/23 19:50 Blood Pressure 122/66 10/07/23 19:43 Pulse Oximetry 97 10/07/23 19:50 Oxygen Delivery Method Room Air 10/07/23 18:52 MDM - Chest Pain MDM Narrative Medical decision making narrative: Patient was placed on cardiac catheterization technologist and EKG obtained. Blood drawn and sent for evaluation and peripheral IV established. Portable chest x-ray obtained. The patient was ordered to receive IV Toradol for pain. CBC normal. D dimer negative. EKG and CXR normal/negative. Sodium and potassium low - patient given oral potassium in the ED before discharge. Informed of results. Instructed not to drink excessive amounts of water due to low sodium. Given reassurance regarding his chest wall pain and discharged home. HEART score zero - this is musculoskeletal pain. Patient instructed to take motrin at home for pain prn. Lab Data Attestation: I reviewed the patient's lab results. Labs: Lab Results 10/07/23 Range/Units 19:15 WBC 10.6 (4.0-11.0) 10^3/uL RBC 4.90 (4.70-6.10) 10^6/uL Hgb 14.1 (14.0-18.0) g/dL Hct 41.5 L (42.0-54.0) % MCV 84.7 (80.0-94.0) fL MCH 28.8 (25.9-34.0) pg MCHC 34.0 (29.9-35.2) g/dL RDW 13.5 (11.0-15.0) % Plt Count 188 (150-450) 10^3/uL MPV 10.4 (9.5-13.5) fL Neut % (Auto) 74.0 (43.0-75.0) % Lymph % (Auto) 15.2 L (20.5-60.0) % Travis % (Auto) 9.7 (1.7-12.0) % Eos % (Auto) 0.2 L (0.9-7.0) % Baso % (Auto) 0.5 (0.2-2.0) % Neut # (Auto) 7.8 H (1.4-6.5) 10^3/uL Lymph # (Auto) 1.6 (1.2-3.8) 10^3/uL Travis # (Auto) 1.0 H (0.3-0.8) 10^3/uL Eos # (Auto) 0.0 (0.0-0.7) 10^3/uL Baso # (Auto) 0.1 (0.0-0.1) 10^3/uL Abs Immat Gran (auto) 0.04 H (0.00-0.03) 10^3/uL Imm/Tot Granulo (auto) 0.4 (0.0-0.5) % D-Dimer 0.30 (<=0.59) mg/L FEU Sodium 129 L (136-145) mmol/L Potassium 3.0 L (3.5-5.1) mmol/L Chloride 99 (98-107) mmol/L Carbon Dioxide 29.6 (21.0-32.0) mmol/L Anion Gap 3.4 BUN 12.0 (7.0-18.0) mg/dL Creatinine 1.25 (0.70-1.30) mg/dL Est GFR ( Amer) >60 (>=60) Est GFR (Non-Af Amer) >60 (>=60) BUN/Creatinine Ratio 9.6 Glucose 97 (74-106) mg/dL Calcium 9.2 (8.5-10.1) mg/dL Troponin I High Sens 5.6 (4.0-76.1) pg/mL Imaging Data Chest x-ray: Radiologist's impression: ITS Impressions Chest X-Ray 10/07/23 19:04 IMPRESSION: No plain film evidence for acute cardiopulmonary disease. Electronically authenticated by: GWEN LUCIEN Date: 10/07/2023 19:46 ECG Data Attestation: I personally reviewed and interpreted this ECG as follows: Interpretation: EKG interpretation: Emergency Department physician interpretation. Normal sinus rhythm at 85bpm. Normal axis, normal intervals and no ST segment elevation or depression. Normal EKG Heart Score History: Slightly/Non-Suspicious ECG: Normal Age: <45 years Risk Factors: No Risk Factors Troponin: <Normal Limit Total Heart Score Recommendations & Risks:: 0 Discharge Plan Discharge Chief Complaint: Chest Pain Clinical Impression: Acute chest wall pain, Hypokalemia Patient Disposition: Home, Self-Care Time of Disposition Decision: 20:00 Prescriptions / Home Meds: No Action albuterol sulfate 90 mcg/actuation aerosol powdr breath activated 1 inh inhalation Q6H PRN (Reason: shortness of breath) Instructions: Hypokalemia (ED), Chest Wall Pain (ED) Stand Alone Forms: Portal Instructions Referrals: Davonte Kohler MD [Primary Care Provider] - 1 week
[2023-10-07 19:35] LABS: Basophils Absolute Auto 0.1 10^3/uL (0.0-0.1); Basophils Percent Auto 0.5 % (0.2-2.0); Eosinophils Percent Auto 0.2 % (0.9-7.0); Hematocrit 41.5 % (42.0-54.0); Hemoglobin 14.1 g/dL (14.0-18.0); Immature Granulocytes Abs Auto 0.04 10^3/uL (0.00-0.03); Immature Granulocytes Pct Auto 0.4 % (0.0-0.5); Lymphocytes Absolute Auto 1.6 10^3/uL (1.2-3.8); Lymphocytes Percent Auto 15.2 % (20.5-60.0); Mean Corpuscular Hemoglobin 28.8 pg (25.9-34.0); Mean Corpuscular Volume 84.7 fL (80.0-94.0); Mean Platelet Volume 10.4 fL (9.5-13.5); Monocytes Percent Auto 9.7 % (1.7-12.0); Neutrophils Absolute Auto 7.8 10^3/uL (1.4-6.5); Platelet Count 188 10^3/uL (150-450); Red Cell Distribution Width 13.5 % (11.0-15.0); White Blood Count 10.6 10^3/uL (4.0-11.0)
[2023-10-07] MEDS: KETOROLAC TROMETHAMINE 30 MG/ML VIAL IVP (19:41)
[2023-10-07 19:53] LABS: Anion Gap 3.4; BUN Creatinine Ratio 9.6; Calcium 9.2 mg/dL (8.5-10.1); Carbon Dioxide 29.6 mmol/L (21.0-32.0); Chloride 99 mmol/L (98-107); Estimated GFR (African America >60 (>=60); Estimated GFR (Non-African Ame >60 (>=60); Glucose 97 mg/dL (74-106); Sodium 129 mmol/L (136-145); Troponin I High Sensitivity 5.6 pg/mL (4.0-76.1)
[2023-10-07] MEDS: POTASSIUM CHLORIDE 10 MEQ ER TABLET 40 MEQ PO (20:23)
== END 2023-10-07 20:29 | disposition home or self-care (01) ==
PROVIDERS: Emergency Provider Emergency Medicine; PCP Family Medicine
DX: R07.89 Other chest pain (principal); E87.6 Hypokalemia; Z79.899 Other long term (current) drug therapy
CPT/HCPCS: 36415; 71045; 80048; 84484; 85025; 85378; 93005; 96374; 99285; J1885

== ENCOUNTER 2023-10-29 21:01 | Emergency (ER) | payer OTHER, SELFPAY ==
[2023-10-29] VITALS (21 sets, daily range): BP systolic 110–144; BP diastolic 67–83; PULSE 68–105; RESP 9–34; TEMP 36.6; O2SAT 84–100; BMI 24.4
--- OUTSIDE RECORDS SUMMARY | 2023-10-29 21:13 | XMS_ITS | CCD ---
Author Name Unknown Address [address] [place] [address] Organization [facility] Care Team Providers Care Information Engineer Name Role Phone Reg CARMENRancho Unavailable ANDREE, DR OPAL Patterson Attending Unavailable ANDREE, DR OPAL Patterson Consulting Unavailable ANDREE, DR OPAL Patterson Admitting Unavailable CHAIM, DR JAZMIN Leong Primary Care Unavailable CHEPE WEAVER Consulting Unavailable CHAIM, DR JAZMIN Leong Attending Unavailable CHAIM, DR JAZMIN Leong Consulting Unavailable CHAIM, DR JAZMIN Leong Primary Care Unavailable CHAIM, DR JAZMIN Leong Admitting Unavailable ZIEBNICOLAS, DR CHEPE Patterson Consulting Unavailable CHIDI LUONG Attending Unavailable CHERISE, CHIDI Admitting Unavailable CHAIM, DR JAZMIN Leong Primary Care Unavailable CHIDI LUONG Consulting Unavailable Allergies Allergy Classification Reported Allergen(s) Allergy Type Date of Onset Reaction(s) Facility (2 sources) Azithromycin Drug Allergy anaphylaxis [facility] [employer] Other (2 sources) Iodine Drug Allergy swelling [facility] [employer] Other (2 sources) Penicillin V Drug Allergy swelling [facility] [employer] Other (1 source) Azithromycin Drug Allergy [facility] (1 source) Penicillin Drug Allergy [facility] (1 source) Iodine and Iodide Containing Products Drug allergy (disorder) [facility] Medications Current Medications Medication Drug [...] Value Interpretation Reference Range Facility Covid-19 PCR ([facility])on SARS-CoV-2 (COVID-19) RNA BRANDI+probe Ql (Unsp spec) Not detected Normal NOT DETECTED [facility] Comment on above: Result Comment: When [...] for this test is supported by the Field Services Director of Health and Human Service's declaration that [...] be used). Performed By: #### C VDTBH ####[facility] [address] [place] [address]Dr. Hailee Bourgeois GROUP A STREP CULTUREon -0 S. pyogenes Ag Ql (Unsp spec) Culture Observations: NEGATIVE FOR GROUP A STREPTOCOCCUS. Normal [facility] Comment on above: Performed By: #### S SCRN, GRASTCX #### [facility] [address] [address] [address] Hailee Bourgeois INFLUENZA A AND B AGon 08-18 INFLUBNEGH SEE BELOW Normal [facility] Comment on above: Result Comment: Nega tive for Flu B protein antigen. Infection due to Flu B cannot be ruled out. Flu B antigen in the sample may be below the detection limit of the test. Performed By: #### I NFLUAB #### [facility] [address] [place] [address] Dr. Hailee Bourgeois INFLUENZA A AG Positive Abnormal NEGATIVE SEE COMMENT [facility] Comment on above: Performed By: #### I NFLUAB #### [facility] [address] [place] [address] Dr. Hailee Bourgeois INFLUENZA B AG Negative Normal NEGATIVE SEE COMMENT [facility] Comment on above: Performed By: #### I NFLUAB #### [facility] [address] [place] [address] Dr. Hailee Bourgeois INFLUPOSH SEE BELOW Normal [facility] Comment on above: Result Comment: NOTE : Live attenuated influenzae vaccine viruses can cause a positive result for a rapid influenza diagnostic test if administered up to 7 days prior to rapid testing. Performed By: #### I NFLUAB #### [facility] [address] [address] [address] Hailee Bourgeois INTERNAL CONTROLS Within Normal Limits Normal Wi thin Normal Limits [facility] Comment on above: Performed By: #### I NFLUAB #### [facility] [address] [address] [address] Hailee Bourgeois STREPT SCREENon 08-18-2022 STREP SCREEN A Negative Normal NEGATIVE [facility] Comment on above: Performed By: #### S SCRN, GRASTCX #### [facility] [address] [address] [address] Hailee Bourgeois XR CHEST 1 Von [...] CHEPE HARDY Date: 2022-08-18 14:53 Normal [facility] VIT D 25-OH [facility]ABC[facility]on 2021 Vitamin D, 25-Hydroxy 31.7 ng/mL Normal 30.0-100.0 [facility] Comment on above: Result Comment: Gia min D deficiency has been defined by the [place] of Medicine and an Endocrine Society practice guideline as a level of serum 25-OH vitamin D less than 20 ng/mL (1,2). The Endocrine Society went on to further define vitamin D insufficiency as a level between 21 and 29 ng/mL (2). 1. IOM ([place] of Medicine). 2010. Dietary reference intakes for calcium and D. [place]: The National Academies Press. 2. Shira MF, Anjelica ASH, Tommy DAIGLE, et al. Evaluation, treatment, and prevention of vitamin D deficiency: an Endocrine Society clinical practice guideline. JCEM. 2010; 96(7):1911-30. Performed By: #### V ITADLC ####[facility] [address] [place], [place] [address]RoDr. Hailee Bourgeois CBC AUTO DIFFon 05-12-2022 BASO # 0.1 103/ul Normal 0.0-0.1 [facility] Comment on above: Performed By: #### C BC #### [facility] [address] [address] [address] Hailee Bourgeois Basophils/100 WBC (Bld) 0.6 % Normal 0.2-2.0 [facility] Comment on above: Performed By: #### C BC #### [facility] [address] [address] [address] Hailee Bourgeois EO # 0.2 103/ul Normal 0.0-0.7 [facility] Comment on above: Performed By: #### C BC #### [facility] [address] [address] [address] Hailee Bourgeois Eosinophils/100 WBC (Bld) 2.1 % Normal 0.9-7.0 [facility] Comment on above: Performed By: #### C BC #### [facility] [address] [address] [address] Hailee Bourgeois Erythrocyte distribution width (RBC) [Ratio] 13.5 % Normal 11.0-15.0 [facility] Comment on above: Performed By: #### C BC #### [facility] [address] [address] [address] Hailee Bourgeois Hematocrit (Bld) [Volume fraction] 44.5 % Normal 42.0-54.0 [facility] Comment on above: Performed By: #### C BC #### [facility] [id number] Hailee Bourgeois Hemoglobin (Bld) [Mass/Vol] 15.0 g/dL Normal 14.0-18.0 [facility] Comment on above: Performed By: #### C BC #### [facility] [address] [place] [address] Dr. Hailee Bourgeois IG # 0.02 10e3/ul Normal 0.00-0.03 [facility] Comment on above: Performed By: #### C BC #### [facility] [address] [place] [address] Dr. Hailee Bourgeois IG % 0.2 % Normal 0.0-0.5 [facility] Comment on above: Performed By: #### C BC #### [facility] [address] [place] [address] Dr. Hailee Bourgeois LYMPH # 2.0 103/ul Normal 1.2-3.8 [facility] Comment on above: Performed By: #### C BC #### [facility] [address] [place] [address] Dr. Hailee Bourgeois Lymphocytes/100 WBC (Bld) 24.5 % Normal 20.5-60.0 [facility] Comment on above: Performed By: #### C BC #### [facility] [address] [place] [address] Dr. Hailee Bourgeois MANUAL DIFF REQ NO Normal [facility] Comment on above: Performed By: #### C BC #### [facility] [address] [place] [address] Dr. Hailee Bourgeios MCH (RBC) [Entitic mass] 28.5 pg Normal 25.9-34.0 [facility] Comment on above: Performed By: #### C BC #### [facility] [address] [place] [address] Dr. Hailee Bourgeois MCHC (RBC) [Mass/Vol] 33.7 g/dL Normal 29.9-35.2 [facility] Comment on above: Performed By: #### C BC #### [facility] [address] [place] [address] Dr. Hailee Bourgeois MCV (RBC) [Entitic vol] 84.6 fL Normal 80.0-94.0 [facility] Comment on above: Performed By: #### C BC #### [facility] [address] [place] [address] Dr. Hailee Bourgeois MONO # 0.6 103/ul Normal 0.3-0.8 [facility] Comment on above: Performed By: #### C BC #### [facility] [address] [place] [address] Dr. Hailee Bourgeois Monocytes/100 WBC (Bld) 7.0 % Normal 1.7-12.0 [facility] Comment on above: Performed By: #### C BC #### [facility] [address] [place] [address] Dr. Hailee Bourgeois NEUT # 5.3 103/ul Normal 1.4-6.5 [facility] Comment on above: Performed By: #### C BC #### [facility] [address] [place] [address] Dr. Hailee Bourgeois Neutrophils/100 WBC (Bld) 65.6 % Normal 43.0-75.0 [facility] Comment on above: Performed By: #### C BC #### [facility] [address] [place] [address] Dr. Hailee Bourgeois Platelet mean volume (Bld) [Entitic vol] 10.6 fL Normal 9.5-13.5 [facility] Comment on above: Performed By: #### C BC #### [facility] [address] [place] [address] Dr. Hailee Bourgeois PLT 216 103/ul Normal 150-450 [facility] Comment on above: Performed By: #### C BC #### [facility] [address] [place] [address] Dr. Hailee Bourgeois RBC 5.26 106/ul Normal 4.70-6.10 [facility] Comment on above: Performed By: #### C BC #### [facility] [address] [place] [address] Dr. Hailee Bourgeois WBC 8.1 103/ul Normal 4.0-11.0 [facility] Comment on above: Performed By: #### C BC #### [facility] [address] [place] [address] Dr. Hailee Bourgeois GLYCOHEMOGLOBIN A1Con 2021 ADA RECOMMENDATION SEE BELOW Normal [facility] Comment on above: Result Comment: ADA RECOMMENDED LIMIT 4.0 - 6.0 ADA THERAPEUTIC TARGET < 7.0 ACTION SUGGESTED > 7.0 Performed By: #### A 1C ####[facility] [address] [place] [id number]. Hailee Bourgeois Glucose [Mass/Vol] 91 mg/dL Normal [facility] Comment on above: Performed By: #### A 1C ####[facility] [address] [address]Dr. Hailee Bourgeois HbA1c (Bld) [Mass fraction] 4.8 % Normal 4.5-6.2 [facility] Comment on above: Performed By: #### A 1C ####[facility] [address] [place] [address]DrTaina Bourgeois LIPID PROFILEon 05-12-2022 CHOL-HDL RATIO NORM SEE BELOW Normal [facility] Comment on above: Result Comment: 3.3 - 4.4 LOW RISK 4.4 - 7.1 AVERAGE RISK 7.1 - 11.0 MODERATE RISK >11.0 HIGH RISK Performed By: #### T SH, LIPID, LIVER, BMP #### [facility] [address] [address] [address] Hailee Bourgeois Cholesterol [Mass/Vol] 195 mg/dL Normal <=200 [facility] Comment on above: Performed By: #### T SH, LIPID, LIVER, BMP #### [facility] [address] [address] [address] Hailee Bourgeois Cholesterol in HDL [Mass/Vol] 39 mg/dL Critically low 40-60 [facility] Comment on above: Performed By: #### T SH, LIPID, LIVER, BMP #### [facility] [address] [address] [address] Hailee Bourgeois Cholesterol in LDL [Mass/Vol] 138.2 mg/dL Normal [facility] Comment on above: Performed By: #### T SH, LIPID, LIVER, BMP #### [facility] [address] [address] [address] Hailee Bourgeois Cholesterol.total/Cho lesterol in HDL [Mass ratio] 5.0 {ratio} Normal [facility] Comment on above: Performed By: #### T SH, LIPID, LIVER, BMP #### [facility] [address] [address] [address] Hailee Bourgeois HDL NORMAL > or = 60 mg/dl - LO W CARDIOVASCULAR RISK <40 mg/dl - HIGH CARDIOVASCULAR RISK Normal [facility] Comment on above: Performed By: #### T SH, LIPID, LIVER, BMP #### [facility] [address] [address] [address] Hailee Bourgeois LDL CALC NORMAL SEE BELOW Normal [facility] Comment on above: Result Comment: <100 mg/dl OPTIMAL 100 - 129 mg/dl NEAR OR ABOVE OPTIMAL 130 - 159 mg/dl BORDERLINE HIGH 160 - 189 mg/dl HIGH >190 mg/dl VERY HIGH Performed By: #### T SH, LIPID, LIVER, BMP #### [facility] [address] [address] [address] Hailee Bourgeois Triglyceride [Mass/Vol] 89 mg/dL Normal <=150 [facility] Comment on above: Performed By: #### T SH, LIPID, LIVER, BMP #### [facility] [address] [address] [address] Hailee Bourgeois VLDL CALC 17.8 mg/dL Normal [facility] Comment on above: Performed By: #### T SH, LIPID, LIVER, BMP #### [facility] [address] [address] [address] Hailee Bourgeois LIVER PROFILEon 05-12-2022 Albumin [Mass/Vol] 4.3 g/dL Normal 3.4-5.0 [facility] Comment on above: Performed By: #### T SH, LIPID, LIVER, BMP #### [facility] [address] [address] [address] Hailee Bourgeois Albumin/Globulin [Mass ratio] 1.3 {ratio} Normal [facility] Comment on above: Performed By: #### T SH, LIPID, LIVER, BMP #### [facility] [address] [address] [address] Hailee Bourgeois ALP [Catalytic activity/Vol] 77 U/L Normal 46-116 [facility] Comment on above: Performed By: #### T SH, LIPID, LIVER, BMP #### [facility] [address] [place] [address] Dr. Hailee Bourgeois ALT [Catalytic activity/Vol] 30 U/L Normal 16-63 [facility] Comment on above: Performed By: #### T SH, LIPID, LIVER, BMP #### [facility] [address] [place] [address] Dr. Hailee Bourgeois AST [Catalytic activity/Vol] 21 U/L Normal 15-37 [facility] Comment on above: Performed By: #### T SH, LIPID, LIVER, BMP #### [facility] [address] [place] [address] Dr. Hailee Bourgeois BILI, CONJUGATED 0.1 mg/dL Normal 0.0-0.2 [facility] Comment on above: Performed By: #### T SH, LIPID, LIVER, BMP #### [facility] [address] [place] [address] Dr. Hailee Bourgeois Bilirubin [Mass/Vol] 0.6 mg/dL Normal 0.2-1.0 [facility] Comment on above: Performed By: #### T SH, LIPID, LIVER, BMP #### [facility] [address] [place] [address] Dr. Haliee Bourgeois Globulin (S) [Mass/Vol] 3.4 g/dL Normal [facility] Comment on above: Performed By: #### T SH, LIPID, LIVER, BMP #### [facility] [address] [place] [address] Dr. Hailee Bourgeois Protein [Mass/Vol] 7.7 g/dL Normal 6.4-8.2 [facility] Comment on above: Performed By: #### T SH, LIPID, LIVER, BMP #### [facility] [address] [place] [address] Dr. Hailee Bourgeois PROF CHEM 8 (BAS METB)on Anion gap [Moles/Vol] 11.3 mmol/L Normal [facility] Comment on above: Performed By: #### T SH, LIPID, LIVER, BMP #### [facility] [address] [address] [address] Hailee Bourgeois Calcium [Mass/Vol] 9.3 mg/dL Normal 8.5-10.1 [facility] Comment on above: Performed By: #### T SH, LIPID, LIVER, BMP #### [facility] [address] [address] [address] Hailee Bourgeois Chloride [Moles/Vol] 104 mmol/L Normal 98-107 [facility] Comment on above: Performed By: #### T SH, LIPID, LIVER, BMP #### [facility] [address] [address] [address] Hailee Bourgeois CO2 [Moles/Vol] 30.1 mmol/L Normal 21.0-32.0 [facility] Comment on above: Performed By: #### T SH, LIPID, LIVER, BMP #### [facility] [address] [place] [address] Dr. Hailee Bourgeois Creatinine [Mass/Vol] 1.00 mg/dL Normal 0.70-1.30 [facility] Comment on above: Performed By: #### T SH, LIPID, LIVER, BMP #### [facility] [address] [place] [address] Dr. Hailee Bourgeois EGFR-AF MICRONESIAN >60 Normal >=60 [facility] Comment on above: Performed By: #### T SH, LIPID, LIVER, BMP #### [facility] [address] [place] [address] Dr. Hailee Bourgeois EGFR-NON AF MICRONESIAN >60 Normal >=60 [facility] Comment on above: Performed By: #### T SH, LIPID, LIVER, BMP #### [facility] [address] [address] [address] Hailee Bourgeois Glucose [Mass/Vol] 96 mg/dL Normal 74-106 [facility] Comment on above: Performed By: #### T SH, LIPID, LIVER, BMP #### [facility] [address] [address] [address] Hailee Bourgeois Potassium [Moles/Vol] 3.4 mmol/L Critically low 3.5-5.1 [facility] Comment on above: Performed By: #### T SH, LIPID, LIVER, BMP #### [facility] [address] [address] [address] Hailee Bourgeois Sodium [Moles/Vol] 142 mmol/L Normal 136-145 [facility] Comment on above: Performed By: #### T SH, LIPID, LIVER, BMP #### [facility] [address] [address] [address] Hailee Bourgeois Urea nitrogen [Mass/Vol] 9.0 mg/dL Normal 7.0-18.0 [facility] Comment on above: Performed By: #### T DAVID, LIPID, LIVER, BMP #### [facility] [address] [address] [address] Hailee Bourgeois Urea nitrogen/Creatinine [Mass ratio] 9.0 mg/mg Normal [facility] Comment on above: Performed By: #### T DAVID, LIPID, LIVER, BMP #### [facility] [address] [place] [address] Dr. Hailee Bourgeois TSHon 05-12-2022 TSH 1.788 uIU/mL Normal 0.358-3.740 [facility] Comment on above: Performed By: #### T DAVID, LIPID, LIVER, BMP #### [facility] [address] [place] [address] Dr. Hailee Bourgeois XR hand LT min 3V*on 022 XR hand LT min 3V* [facility] [place] [address] XRay Report Signed Patient: Mecca Dunn MR#: [id number] 33 : 1985 Acct:[id number] Age/Sex: 36 / M ADM Date: 11/24/21 Loc: [facility] Room: Type: [facility] Attending Dr: Rancho Finney II, MD Ordering [...] Neri Jr., M.D.11/24/2021 11:13 AM Dictation Location: [place] [address] Transcribed By: [facility] 11/24/21 1113 Dictated By: Geoffrey Neri Jr, MD 11/24/21 1108 Signed By: 11/24/21 1113 [facility] XR hand LT min 3V*on 022 XR hand LT min 3V* [facility] [address] XRay Report Signed Patient: Mecca Dunn MR#: [id number] 33 : 1985 Acct:[id number] Age/Sex: 36 / M ADM Date: 10/27/21 Loc: [facility] Room: Type: [facility] Attending Dr: Rancho Finney II, MD Ordering [...] Opal Wiggins M.D.10/27/2021 1:06 PM Dictation Location: [place] [address] Transcribed By: KM 10/27/21 1306 Dictated By: Opal Wiggins II, MD 10/27/21 1303 Signed By: 10/27/21 1306 [facility] XR HAND LT MIN 3Von 10-03-19 XR [...] by: CHEPE WEAVER Date: 2021-10-02 23:14 Normal [facility] Vital Signs Date Time Vital Sign Value Performing Clinician Hitesh peterson 10-06-2021 14:30-0500 Body height 180.34 cm Rancho Finney II Other [facility] Other 10-06-2021 14:30-0500 Body mass index (BMI) [Ratio] 24.4 kg/m2 Rancho Finney II Other [facility] Other 10-06-2021 14:30-0500 Body weight 79.38 kg Rancho Finney II Other [facility] Other Encounters Encounter Date Encounter Type Care Provider Facility Start: 08-18-2022 End: 08-18-[address] CHEPE HARDY Facility:[facility] Start: 05-13-2022 Encounter for genera l adult medical examination without abnormal findings DR JAZMIN RUCKER [facility] Start: 05-12-2022 End: 05-13-[address] JAZMIN RUCKER Facility:[facility] Start: 05-12-2022 End: 05-13-2022 Encounter for general adult medical examination without abnormal findings DR JAZMIN RUCKER Facility:[facility] Start: 11-24-2021 End: 11-24-2021 ambulatory Rancho Dekalb II Other [facility] Other Start: 11-24-2021 Office outpatient vi sit 25 minutes Rancho Dekalb II [facility] Start: 10-06-2021 ([facility]) [employer] [employer] Rancho Reg II [facility] Start: 10-06-2021 End: 10-06-2021 ambulatory Rancho Reg II Other [facility] Other Start: 10-02-2021 End: 10-03-[address] OPAL CANDELARIO Facility:[facility] Payers Date Payer Category Payer Unknown [id number] .16.84 [id number] 1985 Unknown [id number] .16.84 [id number] 1985 Unknown [id number] .16.84 [id number] 1959 Unknown [id number] 2.1 [id number] 1958 Unknown [id number] Unknown [id number] Social History Date Type Detail Facility Sex Assigned At [facility] Other Sex Assigned At Sex Assigned At Bir th [facility] Other Evaluation note 11-24-2021 Note Date & [...] anything new in the future. Patient agreed. [facility] Other Evaluation note Note Date & Type Note Facility Evaluation note [employer] Other History general Narrative - Reported Note Date & Type Note Facility History general Narrative - Reported [facility] Other History general Narrative - Reported Note Date & Type Note Facility History general Narrative - Reported Type Medical History asthma [facility] Other Summary Purpose Family History No Family History Records FoundNo Family History Records Found Advance Directives No Advanced Directives Records FoundNo Advanced Directives Records Found Additional Source Comments (unrecognized sect ion and content) No Status Records FoundNo Status Records Found INFORMATION SOURCE (unrecogn ized section and content) DATE CREATED AUTHOR 02/11/2022 [facility] DATE CREATED AUTHOR AUTHOR'S ORGANIZ ATION 08/22/2022 [facility] REASON FOR VISIT (unrecogniz ed [...] BE BASED ON THE PRIMARY CLINICAL RECORDS. [facility]. provides no warranty or guarantee of the accuracy or completeness of information in this document.
--- NOTE | 2023-10-29 21:15 | ED_ITS ---
HPI - Syncope General Chief Complaint: Shortness of Breath/Dyspnea Stated Complaint: Shortness of breath Time Seen by Provider: 10/29/23 21:03 Source: patient Mode of arrival: ambulance Limitations: no limitations History of Present Illness HPI narrative: History of anxiety. States he was started on medication for anxiety per his physician about one month ago. States around 2pm today he drank an energy drink and his throat felt sore afterwards. Sensation like it was closing. Tonight he was in the shower. States he passed out in the shower. He remembers falling forward. Not sure how how he was out. States past history of light headed episodes but has not passed out. Got up out of the shower and had his call 911. Presents now. Still feels anxious and plans to have his physician increase his anxiety medication . voice not hoarse. No problem swallowing Related Data Home Medications Medication Instructions Recorded Confirmed albuterol sulfate 90 mcg/actuation 1 inh inhalation Q6H PRN shortness 10/07/23 10/07/23 breath activated powder inhaler of breath citalopram 10 mg tablet 10 mg PO DAILY 10/29/23 10/29/23 Allergies Allergy/AdvReac Type Severity Reaction Status Date / Time amoxicillin Allergy Intermediate Verified 10/07/23 18:57 ampicillin Allergy Intermediate Verified 10/07/23 18:57 Penicillins Allergy Intermediate Verified 10/07/23 18:57 Review of Systems ROS Status of ROS 10 or more systems reviewed and unremark able except as noted in history and below PFSH PFS Social History Smoking status: Never smoker Exam Constitutional Vital Signs, click to edit/add: Last Vital Signs Temp 97.9 F 10/29/23 21:08 Pulse 79 10/30/23 00:40 Resp 25 H 10/30/23 00:40 BP 120/63 10/30/23 00:30 Pulse Ox 97 10/30/23 00:46 O2 Del Method Room Air 10/29/23 21:08 Common normals: no apparent distress, average body habitus, oriented x3, no limitations, healthy appearing, alert and well nourished [facility] Common normals: normocephalic and head/scalp atraumatic Other: oral pharynx erythematous . no swelling. voice is clear Eye Common normals: PERRL, EOMs intact bilaterally and conjunctivae normal Respiratory Common normals: normal respiratory effort, no retractions and no use of accessory muscles Cardio Common normals: regular rate, regular rhythm, S1 normal heart sound and S2 normal heart sound GI Common normals: Normal to inspection, nondistended, normoactive bowel sounds present, soft to palpation and non-tender Extremity Common normals: normal to inspection and full ROM Neuro Common normals: oriented x3, CN's II-XII intact bilaterally, moves all extremities and no focal motor deficits Psych Mood and affect: anxious Course Vital Signs Vital signs: Vital Signs Temperature 97.9 F 10/29/23 21:08 Pulse Rate 92 H 10/29/23 21:08 Respiratory Rate 20 10/29/23 21:08 Blood Pressure 137/75 10/29/23 21:08 Pulse Oximetry 97 10/29/23 21:08 Oxygen Delivery Method Room Air 10/29/23 21:08 Temperature 97.9 F 10/29/23 21:08 Pulse Rate 79 10/30/23 00:40 Respiratory Rate 25 H 10/30/23 00:40 Blood Pressure 120/63 10/30/23 00:30 Pulse Oximetry 97 10/30/23 00:46 Oxygen Delivery Method Room Air 10/29/23 21:08 MDM - Syncope MDM Narrative Medical decision making narrative: patient has history of anxiety and was started on mental health medication in the past month for it. Earlier today drank an energy drink and states his throat felt sore afterwards. [place] like his throat was closing. Tonight while in the shower he passed out. States he has a history of light headiness but does not usually past out. Arrives asymptomatic via [facility] except for complaint involving his throat. His pharynx is erythematous but not swollen and strep throat is positive. D-dimer and serial tropinin neg. normal EKG. WBC elevated from infected throat and syncopal episode. Patient medicated with clindamycin and discharged home in stable condition to follow up with his family doctor for recheck Lab Data Labs: Lab Results 10/29/23 10/29/23 10/30/23 Range/Units 21:10 21:32 00:04 WBC 23.1 H (4.0-11.0) 10^3/uL RBC 5.10 (4.70-6.10) 10^6/uL Hgb 14.6 (14.0-18.0) g/dL Hct 43.2 (42.0-54.0) % MCV 84.7 (80.0-94.0) fL MCH 28.6 (25.9-34.0) pg MCHC 33.8 (29.9-35.2) g/dL RDW 13.9 (11.0-15.0) % Plt Count 217 (150-450) 10^3/uL MPV 10.1 (9.5-13.5) fL Neut % (Auto) 87.2 H (43.0-75.0) % Lymph % (Auto) 6.5 L (20.5-60.0) % [place] % (Auto) 5.3 (1.7-12.0) % Eos % (Auto) 0.5 L (0.9-7.0) % Baso % (Auto) 0.2 (0.2-2.0) % Neut # (Auto) 20.1 H (1.4-6.5) 10^3/uL Lymph # (Auto) 1.5 (1.2-3.8) 10^3/uL [place] # (Auto) 1.2 H (0.3-0.8) 10^3/uL Eos # (Auto) 0.1 (0.0-0.7) 10^3/uL Baso # (Auto) 0.0 (0.0-0.1) 10^3/uL Abs Immat Gran (auto) 0.08 H (0.00-0.03) 10^3/uL Imm/Tot Granulo (auto) 0.3 (0.0-0.5) % D-Dimer 0.20 (<=0.59) mg/L FEU Sodium 143 (136-145) mmol/L Potassium 3.4 L (3.5-5.1) mmol/L Chloride 104 (98-107) mmol/L Carbon Dioxide 26.8 (21.0-32.0) mmol/L Anion Gap 15.6 BUN 13.0 (7.0-18.0) mg/dL Creatinine 1.27 (0.70-1.30) mg/dL Est GFR ( Amer) >60 (>=60) Est GFR (Non-Af Amer) >60 (>=60) BUN/Creatinine Ratio 10.2 Glucose 137 H (74-106) mg/dL Calcium 9.5 (8.5-10.1) mg/dL Troponin I High Sens 8.9 8.4 (4.0-76.1) pg/mL Streptococcus Screen Positive A Discharge Plan Discharge Chief Complaint: Shortness of Breath/Dyspnea Clinical Impression: Syncope, Strep throat Patient Disposition: Home, Self-Care Prescriptions / Home Meds: No Action albuterol sulfate 90 mcg/actuation aerosol powdr breath activated 1 inh inhalation Q6H PRN (Reason: shortness of breath) citalopram 10 mg tablet 10 mg PO DAILY Instructions: Strep Throat (ED), Syncope (ED) Additional Instructions: drink plenty of fluids and follow up with your doctor in a couple of days for recheck. Return if any recurrence of passing out Stand Alone Forms: Portal Instructions Referrals: Davonte Kohler MD [Primary Care Provider] - 1 week Discharge Date/Time: 10/30/23 00:47
--- NOTE | 2023-10-29 21:23 | ECG_ITS ---
[facility] Test Date: 2023-10-29 Pat Name: MECCA ABRAHAM Department: Room: - Gender: Male Gi Tech: : 1985 Requested By: JAZMIN RUCKER Order Number: [id number] Reading MD: TUSHAR TADEO Measurements Intervals [place] Rate: 87 P: 69 CA: 122 QRS: 89 QRSD: 96 T: 45 QT: 344 QTc: 389 Interpretive Statements 1100 Sinus rhythm 9110 normal ECG Compared to ECG 10/07/2023 19:01:37 No significant changes Electronically Signed On 10-30-2023 7:18:26 EST by TUSHAR TADEO
--- NOTE | 2023-10-29 21:23 | XR_ITS ---
The [address] [address] Patient Name: MECCA ABRAHAM MRN: [id number] date: 1985 Sex: M Assigned Patient Location: ER Current Patient Location: ER Accession/Order Number: [id number] Exam Date: 10/29/2023 22:02 Report Date: 10/29/2023 22:43 At the request of: JACQUELYN CHOWDARY Procedure: XR chest 1V EXAMINATION: XR chest 1V, , 10/29/2023 10:02 PM EST INDICATION: syncope HISTORY: Ordering Provider Reason for Exam: syncope Technologist Note: Additional: COMPARISON: XR chest 1V Study Date: 10/07/2023 TECHNIQUE: Chest x-ray: One view. FINDINGS: No pneumothorax, pleural effusion or focal airspace consolidation. Heart is normal in size. Bony thorax is unremarkable. XR/XR chest 1V IMPRESSION: No acute cardiopulmonary process. Electronically authenticated by: PO KANG Date: 10/29/2023 22:43
[2023-10-29] MEDS: DIPHENHYDRAMINE HCL 50 MG/ML (1ML) VIAL IV (21:41)
[2023-10-29] MEDS: METHYLPREDNISOLONE SOD SUCC PF 125 MG/2 ML VIAL IVP (21:41)
[2023-10-29] MEDS: 0.9 % SODIUM CHLORIDE 1,000 ML 999 ML IV (21:41)
[2023-10-29 21:54] LABS: Basophils Percent Auto 0.2 % (0.2-2.0); Eosinophils Absolute Auto 0.1 10^3/uL (0.0-0.7); Eosinophils Percent Auto 0.5 % (0.9-7.0); Hematocrit 43.2 % (42.0-54.0); Hemoglobin 14.6 g/dL (14.0-18.0); Immature Granulocytes Abs Auto 0.08 10^3/uL (0.00-0.03); Immature Granulocytes Pct Auto 0.3 % (0.0-0.5); Lymphocytes Absolute Auto 1.5 10^3/uL (1.2-3.8); Lymphocytes Percent Auto 6.5 % (20.5-60.0); Mean Corpuscular HGB Conc 33.8 g/dL (29.9-35.2); Mean Corpuscular Hemoglobin 28.6 pg (25.9-34.0); Mean Corpuscular Volume 84.7 fL (80.0-94.0); Mean Platelet Volume 10.1 fL (9.5-13.5); Monocytes Absolute Auto 1.2 10^3/uL (0.3-0.8); Monocytes Percent Auto 5.3 % (1.7-12.0); Neutrophils Absolute Auto 20.1 10^3/uL (1.4-6.5); Neutrophils Percent Auto 87.2 % (43.0-75.0); Platelet Count 217 10^3/uL (150-450); Red Cell Distribution Width 13.9 % (11.0-15.0); White Blood Count 23.1 10^3/uL (4.0-11.0)
[2023-10-29 21:59] LABS: Internal Control Within Normal Limits; Strep A Antigen Screen Positive
[2023-10-29] MEDS: ONDANSETRON PF 4 MG/2 ML VIAL IV (22:00)
[2023-10-29 22:08] LABS: Anion Gap 15.6; BUN Creatinine Ratio 10.2; Calcium 9.5 mg/dL (8.5-10.1); Carbon Dioxide 26.8 mmol/L (21.0-32.0); Chloride 104 mmol/L (98-107); Estimated GFR (African America >60 (>=60); Estimated GFR (Non-African Ame >60 (>=60); Glucose 137 mg/dL (74-106); Potassium 3.4 mmol/L (3.5-5.1); Sodium 143 mmol/L (136-145); Troponin I High Sensitivity 8.9 pg/mL (4.0-76.1)
[2023-10-29] MEDS: CLINDAMYCIN HCL 150 MG CAPSULE 300 MG PO (23:46)
[2023-10-30] VITALS: BP 117/68; PULSE 81; RESP 20
[2023-10-30 00:10] VITALS: PULSE 79; RESP 30
[2023-10-30 00:20] VITALS: PULSE 75; RESP 28
[2023-10-30 00:30] VITALS: BP 120/63; PULSE 75; RESP 24
[2023-10-30 00:37] LABS: Troponin I High Sensitivity 8.4 pg/mL (4.0-76.1)
[2023-10-30 00:40] VITALS: PULSE 79; RESP 25
[2023-10-30 00:46] VITALS: O2SAT 97
== END 2023-10-30 00:47 | disposition home or self-care (01) ==
PROVIDERS: Emergency Provider Internal Medicine; PCP Family Medicine
DX: J02.0 Streptococcal pharyngitis (principal); F41.9 Anxiety disorder, unspecified; R55 Syncope and collapse
CPT/HCPCS: 36415; 71045; 80048; 84484; 85025; 85378; 87880; 93005; 96361; 96374; 96375; 99285; J1200; J2405; J2930

== ENCOUNTER 2023-11-29 19:25 | Emergency (ER) | payer OTHER, SELFPAY ==
[2023-11-29 19:29] VITALS: BP 142/77; PULSE 75; RESP 18; TEMP 36.4; O2SAT 98; BMI 25.1
--- OUTSIDE RECORDS SUMMARY | 2023-11-29 19:33 | XMS_ITS | CCD ---
Author Organization [facility] Care Team Providers Care Paleobotanist Name Role Phone Reg CARMENRancho Unavailable [phone] ANDREE, DR OPAL Patterson Attending Unavailable ANDREE, DR OPAL Patterson Consulting Unavailable ANDREE, DR OPAL Patterson Admitting Unavailable CHAIM, DR JAZMIN Leong Primary Care Unavailable CHEPE WEAVER Consulting Unavailable CHAIM, DR JAZMIN Leong Attending Unavailable JESIKAERELeonardo, DR JAZMIN Leong Consulting Unavailable CHAIM, DR JAZMIN Leong Primary Care Unavailable CHAIM, DR JAZMIN Leong Admitting Unavailable ANTONY, DR CHEPE Patterson Consulting Unavailable CHIDI LUONG Attending Unavailable CHERISE, CHIDI Admitting Unavailable CHAIM, DR JAZMIN Leong Primary Care Unavailable CHIDI LUONG Consulting Unavailable CHAIM, JAZMIN Attending Unavailable Allergies Allergy Classification Reported Allergen(s) Allergy Type Date of Onset Reaction(s) Facility (2 sources) Azithromycin Drug Allergy anaphylaxis [facility] Other (2 sources) Iodine Drug Allergy swelling [facility] Other (2 sources) Penicillin V Drug Allergy swelling [facility] Other (1 source) Azithromycin Drug Allergy [facility] Repository (1 source) Penicillin Drug Allergy [facility] (1 source) Iodine and Iodide Containing Products Drug allergy (disorder) [facility] Medications Current Medications Medication Drug Class(es) [...] Value Interpretation Reference Range Facility Covid-19 PCR ([facility])on SARS-CoV-2 (COVID-19) RNA BRANDI+probe Ql (Unsp spec) Not detected Normal NOT DETECTED [facility] Comment on above: Result Comment: When diagnostic [...] for this test is supported by the [place] of Health and Human Service's declaration that [...] be used). Performed By: #### C VDTBH ####[facility] [id number] [place] [address]Dr. Hailee Bourgeois GROUP A STREP CULTUREon -0 S. pyogenes Ag Ql (Unsp spec) Culture Observations: NEGATIVE FOR GROUP A STREPTOCOCCUS. Normal [facility] Comment on above: Performed By: #### S SCRN, GRASTCX #### [facility] [address] [address] [address] Hailee Bourgeois INFLUENZA A AND B AGon 08-18 INFLUBNEGH SEE BELOW Normal [facility] Comment on above: Result Comment: Nega tive for Flu B protein antigen. Infection due to Flu B cannot be ruled out. Flu B antigen in the sample may be below the detection limit of the test. Performed By: #### I NFLUAB #### [facility] [address] [address] [address] Hailee Bourgeois INFLUENZA A AG Positive Abnormal NEGATIVE SEE COMMENT [facility] Comment on above: Performed By: #### I NFLUAB #### [facility] [address] [place] [address] Dr. Hailee Bourgeois INFLUENZA B AG Negative Normal NEGATIVE SEE COMMENT [facility] Comment on above: Performed By: #### I NFLUAB #### [facility] [address] [place] [address] Dr. Hailee Bourgeois INFLUPOSH SEE BELOW Normal [facility] Comment on above: Result Comment: NOTE : Live attenuated influenzae vaccine viruses can cause a positive result for a rapid influenza diagnostic test if administered up to 7 days prior to rapid testing. Performed By: #### I NFLUAB #### [facility] [address] [address] [address] Hailee Bourgeois INTERNAL CONTROLS Within Normal Limits Normal Wi thin Normal Limits [facility] Comment on above: Performed By: #### I NFLUAB #### [facility] [address] [address] [address] Hailee Bourgeois STREPT SCREENon 08-18-2022 STREP SCREEN A Negative Normal NEGATIVE The [place] Comment on above: Performed By: #### S SCRN, GRASTCX #### [facility] [address] [address] [address] Hailee Bourgeois XR CHEST 1 Von [...] CHEPE HARDY Date: 2022-08-18 14:53 Normal [facility] VIT D 25-OH LABCORPon 2021 Vitamin D, 25-Hydroxy 31.7 ng/mL Normal 30.0-100.0 [facility] Comment on above: Result Comment: Gia min D deficiency has been defined by the [place] of Medicine and an Endocrine Society practice guideline as a level of serum 25-OH vitamin D less than 20 ng/mL (1,2). The Endocrine Society went on to further define vitamin D insufficiency as a level between 21 and 29 ng/mL (2). 1. IOM ([place] of Medicine). 2010. Dietary reference intakes for calcium and D. [place]: The National Academies Press. 2. Shira MF, Anjelica [place], Tommy DAIGLE, et al. Evaluation, treatment, and prevention of vitamin D deficiency: an Endocrine Society clinical practice guideline. JCEM. 2010; 96(7):1911-30. Performed By: #### V ITADLC ####[facility] [id number] [id number]. Hailee Bourgeois CBC AUTO DIFFon 05-12-2022 BASO # 0.1 103/ul Normal 0.0-0.1 [facility] Comment on above: Performed By: #### C BC #### [facility] [address] [address] [address] Hailee Bourgeois Basophils/100 WBC (Bld) 0.6 % Normal 0.2-2.0 [facility] Comment on above: Performed By: #### C BC #### [facility] [address] [address] [address] Hailee Bourgeois EO # 0.2 103/ul Normal 0.0-0.7 [facility] Comment on above: Performed By: #### C BC #### [facility] [address] [address] [address] Hailee Bourgeois Eosinophils/100 WBC (Bld) 2.1 % Normal 0.9-7.0 [facility] Comment on above: Performed By: #### C BC #### [facility] [address] [address] [address] Hailee Bourgeois Erythrocyte distribution width (RBC) [Ratio] 13.5 % Normal 11.0-15.0 [facility] Comment on above: Performed By: #### C BC #### [facility] [address] [place] [address] Dr. Hailee Bourgeois Hematocrit (Bld) [Volume fraction] 44.5 % Normal 42.0-54.0 [facility] Comment on above: Performed By: #### C BC #### [facility] [address] [address] [address] Hailee Bourgeois Hemoglobin (Bld) [Mass/Vol] 15.0 g/dL Normal 14.0-18.0 [facility] Comment on above: Performed By: #### C BC #### [facility] [address] [place] [address] Dr. Hailee Bourgeois IG # 0.02 10e3/ul Normal 0.00-0.03 [facility] Comment on above: Performed By: #### C BC #### [facility] [address] [place] [address] Dr. Hailee Bourgeois IG % 0.2 % Normal 0.0-0.5 [facility] Comment on above: Performed By: #### C BC #### [facility] [address] [place] [address] Dr. Hailee Bourgeois LYMPH # 2.0 103/ul Normal 1.2-3.8 [facility] Comment on above: Performed By: #### C BC #### [facility] [address] [place] [address] Dr. Hailee Bourgeois Lymphocytes/100 WBC (Bld) 24.5 % Normal 20.5-60.0 [facility] Comment on above: Performed By: #### C BC #### [facility] [address] [place] [address] Dr. Hailee Bourgeois MANUAL DIFF REQ NO Normal [facility] Comment on above: Performed By: #### C BC #### [facility] [address] [place] [address] Dr. Hailee Bourgeois MCH (RBC) [Entitic mass] 28.5 pg Normal 25.9-34.0 [facility] Comment on above: Performed By: #### C BC #### [facility] [address] [place] [address] Dr. Hailee Bourgeois MCHC (RBC) [Mass/Vol] 33.7 g/dL Normal 29.9-35.2 [facility] Comment on above: Performed By: #### C BC #### [facility] [address] [place] [address] Dr. Hailee Bourgeois MCV (RBC) [Entitic vol] 84.6 fL Normal 80.0-94.0 [facility] Comment on above: Performed By: #### C BC #### [facility] [address] [place] [address] Dr. Hailee Bourgeois MONO # 0.6 103/ul Normal 0.3-0.8 [facility] Comment on above: Performed By: #### C BC #### [facility] [address] [place] [address] Dr. Hailee Bourgeois Monocytes/100 WBC (Bld) 7.0 % Normal 1.7-12.0 [facility] Comment on above: Performed By: #### C BC #### [facility] [address] [place] [address] Dr. Hailee Bourgeois NEUT # 5.3 103/ul Normal 1.4-6.5 [facility] Comment on above: Performed By: #### C BC #### [facility] [address] [place] [address] Dr. Hailee Bourgeois Neutrophils/100 WBC (Bld) 65.6 % Normal 43.0-75.0 [facility] Comment on above: Performed By: #### C BC #### [facility] [address] [place] [address] Dr. Hailee Bourgeois Platelet mean volume (Bld) [Entitic vol] 10.6 fL Normal 9.5-13.5 [facility] Comment on above: Performed By: #### C BC #### [facility] [address] [place] [address] Dr. Hailee Bourgeois PLT 216 103/ul Normal 150-450 [facility] Comment on above: Performed By: #### C BC #### [facility] [address] [place] [address] Dr. Hailee Bourgeois RBC 5.26 106/ul Normal 4.70-6.10 [facility] Comment on above: Performed By: #### C BC #### [facility] [address] [place] [address] Dr. Hailee Bourgeois WBC 8.1 103/ul Normal 4.0-11.0 [facility] Comment on above: Performed By: #### C BC #### [facility] [address] [place] [address] Dr. Hailee Bourgeois GLYCOHEMOGLOBIN A1Con 2021 ADA RECOMMENDATION SEE BELOW Normal [facility] Comment on above: Result Comment: ADA RECOMMENDED LIMIT 4.0 - 6.0 ADA THERAPEUTIC TARGET < 7.0 ACTION SUGGESTED > 7.0 Performed By: #### A 1C ####[facility] [id number] [place], [place] [address]RrDr. Hailee Bourgeois Glucose [Mass/Vol] 91 mg/dL Normal [facility] Comment on above: Performed By: #### A 1C ####[facility] [id number] [id number]. Hailee Bourgeois HbA1c (Bld) [Mass fraction] 4.8 % Normal 4.5-6.2 [facility] Comment on above: Performed By: #### A 1C ####[facility] [id number] [address]Dr. Hailee Bourgeois LIPID PROFILEon 05-12-2022 CHOL-HDL RATIO NORM SEE BELOW Normal [facility] Comment on above: Result Comment: 3.3 - 4.4 LOW RISK 4.4 - 7.1 AVERAGE RISK 7.1 - 11.0 MODERATE RISK >11.0 HIGH RISK Performed By: #### T SH, LIPID, LIVER, BMP #### [facility] [address] [address] [address] Hailee Bourgeois Cholesterol [Mass/Vol] 195 mg/dL Normal <=200 [facility] Comment on above: Performed By: #### T SH, LIPID, LIVER, BMP #### [facility] [address] [address] [address] Hailee Bourgeois Cholesterol in HDL [Mass/Vol] 39 mg/dL Critically low 40-60 [facility] Comment on above: Performed By: #### T SH, LIPID, LIVER, BMP #### [facility] [address] [address] [address] Hailee Bourgeois Cholesterol in LDL [Mass/Vol] 138.2 mg/dL Normal [facility] Comment on above: Performed By: #### T SH, LIPID, LIVER, BMP #### [facility] [address] [address] [address] Hailee Bourgeois Cholesterol.total/Cho lesterol in HDL [Mass ratio] 5.0 {ratio} Normal [facility] Comment on above: Performed By: #### T SH, LIPID, LIVER, BMP #### [facility] [address] [address] [address] Hailee Bourgeois HDL NORMAL > or = 60 mg/dl - LO W CARDIOVASCULAR RISK <40 mg/dl - HIGH CARDIOVASCULAR RISK Normal [facility] Comment on above: Performed By: #### T SH, LIPID, LIVER, BMP #### [facility] [address] [address] [address] Hailee Bourgeois LDL CALC NORMAL SEE BELOW Normal [facility] Comment on above: Result Comment: <100 mg/dl OPTIMAL 100 - 129 mg/dl NEAR OR ABOVE OPTIMAL 130 - 159 mg/dl BORDERLINE HIGH 160 - 189 mg/dl HIGH >190 mg/dl VERY HIGH Performed By: #### T SH, LIPID, LIVER, BMP #### [facility] [address] [address] [address] Hailee Bourgeois Triglyceride [Mass/Vol] 89 mg/dL Normal <=150 [facility] Comment on above: Performed By: #### T SH, LIPID, LIVER, BMP #### [facility] [address] [address] [address] Hailee Bourgeois VLDL CALC 17.8 mg/dL Normal [facility] Comment on above: Performed By: #### T SH, LIPID, LIVER, BMP #### [facility] [address] [address] [address] Hailee Bourgeois LIVER PROFILEon 05-12-2022 Albumin [Mass/Vol] 4.3 g/dL Normal 3.4-5.0 [facility] Comment on above: Performed By: #### T SH, LIPID, LIVER, BMP #### [facility] [address] [address] [address] Hailee Bourgeois Albumin/Globulin [Mass ratio] 1.3 {ratio} Normal [facility] Comment on above: Performed By: #### T SH, LIPID, LIVER, BMP #### [facility] [address] [address] [address] Hailee Bourgeois ALP [Catalytic activity/Vol] 77 U/L Normal 46-116 [facility] Comment on above: Performed By: #### T SH, LIPID, LIVER, BMP #### [facility] [address] [address] [address] Hailee Bourgeois ALT [Catalytic activity/Vol] 30 U/L Normal 16-63 [facility] Comment on above: Performed By: #### T SH, LIPID, LIVER, BMP #### [facility] [address] [address] [address] Hailee Bourgeois AST [Catalytic activity/Vol] 21 U/L Normal 15-37 [facility] Comment on above: Performed By: #### T SH, LIPID, LIVER, BMP #### [facility] [address] [place] [address] Dr. Hailee Bourgeois BILI, CONJUGATED 0.1 mg/dL Normal 0.0-0.2 [facility] Comment on above: Performed By: #### T SH, LIPID, LIVER, BMP #### [facility] [address] [place] [address] Dr. Hailee Bourgeois Bilirubin [Mass/Vol] 0.6 mg/dL Normal 0.2-1.0 [facility] Comment on above: Performed By: #### T SH, LIPID, LIVER, BMP #### [facility] [address] [place] [address] Dr. Hailee Bourgeois Globulin (S) [Mass/Vol] 3.4 g/dL Normal [facility] Comment on above: Performed By: #### T SH, LIPID, LIVER, BMP #### [facility] [address] [place] [address] Dr. Hailee Bourgeois Protein [Mass/Vol] 7.7 g/dL Normal 6.4-8.2 [facility] Comment on above: Performed By: #### T SH, LIPID, LIVER, BMP #### [facility] [address] [place] [address] Dr. Hailee Bourgeois PROF CHEM 8 (BAS METB)on Anion gap [Moles/Vol] 11.3 mmol/L Normal [facility] Comment on above: Performed By: #### T SH, LIPID, LIVER, BMP #### [facility] [address] [address] [address] Hailee Bourgeois Calcium [Mass/Vol] 9.3 mg/dL Normal 8.5-10.1 [facility] Comment on above: Performed By: #### T SH, LIPID, LIVER, BMP #### [facility] [address] [address] [address] Hailee Bourgeois Chloride [Moles/Vol] 104 mmol/L Normal 98-107 [facility] Comment on above: Performed By: #### T SH, LIPID, LIVER, BMP #### [facility] [address] [address] [address] Hailee Bourgeois CO2 [Moles/Vol] 30.1 mmol/L Normal 21.0-32.0 [facility] Comment on above: Performed By: #### T SH, LIPID, LIVER, BMP #### [facility] [address] [address] [address] Hailee Bourgeois Creatinine [Mass/Vol] 1.00 mg/dL Normal 0.70-1.30 [facility] Comment on above: Performed By: #### T SH, LIPID, LIVER, BMP #### [facility] [address] [address] [address] Hailee Bourgeois EGFR-AF MALIAN >60 Normal >=60 [facility] Comment on above: Performed By: #### T SH, LIPID, LIVER, BMP #### [facility] [address] [address] [address] Hailee Bourgeois EGFR-NON AF MALIAN >60 Normal >=60 [facility] Comment on above: Performed By: #### T SH, LIPID, LIVER, BMP #### [facility] [address] [address] [address] Hailee Bourgeois Glucose [Mass/Vol] 96 mg/dL Normal 74-106 [facility] Comment on above: Performed By: #### T SH, LIPID, LIVER, BMP #### [facility] [address] [address] [address] Hailee Bourgeois Potassium [Moles/Vol] 3.4 mmol/L Critically low 3.5-5.1 [facility] Comment on above: Performed By: #### T SH, LIPID, LIVER, BMP #### [facility] [address] [address] [address] Hailee Bourgeois Sodium [Moles/Vol] 142 mmol/L Normal 136-145 [facility] Comment on above: Performed By: #### T SH, LIPID, LIVER, BMP #### [facility] [address] [address] [address] Hailee Bourgeois Urea nitrogen [Mass/Vol] 9.0 mg/dL Normal 7.0-18.0 [facility] Comment on above: Performed By: #### T DAVID, LIPID, LIVER, BMP #### [facility] [address] [address] [address] Hailee Bourgeois Urea nitrogen/Creatinine [Mass ratio] 9.0 mg/mg Normal [facility] Comment on above: Performed By: #### T DAVID, LIPID, LIVER, BMP #### [facility] [address] [address] [address] Hailee Bourgeois TSHon 05-12-2022 TSH 1.788 uIU/mL Normal 0.358-3.740 [facility] Comment on above: Performed By: #### T SH, LIPID, LIVER, BMP #### [facility] [address] [place] [address] Dr. Hailee Bourgeois XR hand LT min 3V*on 022 XR hand LT min 3V* [facility] [place] [address] XRay Report Signed Patient: Mecca Dunn MR#: [id number] 32 : 1985 Acct:[id number] Age/Sex: 36 / M ADM Date: 11/24/21 Loc: [facility] Attending Dr: Rancho Finney II, MD Ordering [...] Neri Jr., M.D.11/24/2021 11:13 AM Dictation Location: [place] [address] Transcribed By: [facility] 11/24/21 1113 Dictated By: Geoffrey Neri Jr, MD 11/24/21 1108 Signed By: 11/24/21 1113 Normal [facility] XR hand LT min 3V*on 022 XR hand LT min 3V* [facility] [place] [address] XRay Report Signed Patient: Mecca Dunn MR#: [id number] 33 : 1985 Acct:[id number] Age/Sex: 36 / M ADM Date: 10/27/21 Loc: [facility] Room: Type: [facility] Attending Dr: Rancho Finney II, MD [...] Opal Wiggins M.D.10/27/2021 1:06 PM Dictation Location: [place] [address] Transcribed By: [facility] 10/27/21 1306 Dictated By: Opal Wiggins II, MD 10/27/21 1303 Signed By: 10/27/21 1306 [facility] XR HAND LT MIN [...] by: CHEPE WEAVER Date: 2021-10-02 23:14 Normal [facility] Vital Signs Date Time Vital Sign Value Performing Clinician Faci lity 10-06-2021 14:30-0500 Body height 180.34 cm Rancho Finney II Other [facility] Other 10-06-2021 14:30-0500 Body mass index (BMI) [Ratio] 24.4 kg/m2 Rancho Finney II Other [facility] Other 10-06-2021 14:30-0500 Body weight 79.38 kg Rancho Finney II Other [facility] Other Encounters Encounter Date Encounter Type Care Provider Facility Start: 11-15-2023 End: 11-15-2023 ambulatory JAZMIN RUCKER Not Available Start: 08-18-2022 End: 08-18-[address] CHEPE HARDY Facility:[facility] Start: 05-13-2022 Encounter for genera l adult medical examination without abnormal findings DR JAZMIN RUCKER [facility] Start: 05-12-2022 End: 05-13-[address] JAZMIN RUCKER Facility:[facility] Start: 05-12-2022 End: 05-13-2022 Encounter for general adult medical examination without abnormal findings DR JAZMIN RUCKER Facility:[facility] Start: 11-24-2021 End: 11-24-2021 ambulatory Rancho Finney II Other [facility] Other Start: 11-24-2021 Office outpatient vi sit 25 minutes Rancho Grayson II [facility] Start: 10-06-2021 ([facility] [place] [employer] Rancho Grayson II [facility] Start: 10-06-2021 End: 10-06-2021 ambulatory Rancho Grayson II Other [facility] Other Start: 10-02-2021 End: 10-03-[address] OPAL CANDELARIO Facility:[facility] Payers Date Payer Category Payer Unknown [id number] 2.16.84 [id number] 1985 Unknown [id number] 2.16.84 [id number] 1985 Unknown [id number] 2.16.84 [id number] 1986 Unknown [id number] 2.16.84 [id number] 1959 Unknown [id number] 2.1 [id number] 1959 Unknown [id number] Unknown [id number] Social History Date Type Detail Facility Sex Assigned At [facility] Other Sex Assigned At Sex Assigned At Bir th [facility] Other Evaluation note 11-24-2021 Note Date & [...] anything new in the future. Patient agreed. [facility] Other Evaluation note Note Date & Type Note Facility Evaluation note [facility] Other History general Narrative - Reported Note Date & Type Note Facility History general Narrative - Reported [facility] Other History general Narrative - Reported Note Date & Type Note Facility History general Narrative - Reported Type Medical History asthma [facility] Other Summary Purpose Family History No Family History Records FoundNo Family History Records FoundNo Family History Records Found Advance Directives No Advanced Directives Records FoundNo Advanced Directives Records FoundNo Advanced Directives Records Found Additional Source Comments (unrecognized sect ion and content) No Status Records FoundNo Status Records FoundNo Status Records Found INFORMATION SOURCE (unrecogn ized section and content) DATE CREATED AUTHOR 02/11/2022 [facility] DATE CREATED AUTHOR AUTHOR'S ORGANIZ ATION 08/22/2022 [facility] DATE CREATED AUTHOR AUTHOR'S ORGANIZ ATION 11/15/2023 [facility] EPIC REASON FOR VISIT (unrecogniz ed section and [...] BE BASED ON THE PRIMARY CLINICAL RECORDS. [facility]. provides no warranty or guarantee of the accuracy or completeness of information in this document.
--- NOTE | 2023-11-29 19:35 | CT_ITS ---
The [address] [address] Patient Name: MECCA ABRAHAM MRN: [id number] date: 1985 Sex: M Assigned Patient Location: ER Current Patient Location: ER Accession/Order Number: [id number] Exam Date: 11/29/2023 19:48 Report Date: 11/29/2023 20:18 At the request of: ALVAREZ PANEDY Procedure: CT abdomen pelvis wo con EXAM: CT abdomen pelvis wo con TECHNIQUE: Axial CT images were obtained of the abdomen and pelvis without intravenous contrast. Sagittal and coronal reformatted images were also obtained. Dose reduction techniques were achieved by using automated exposure control and/or adjustment of mA and/or kV according to patient size and/or use of iterative reconstruction technique. HISTORY: Kidney stone COMPARISON: 08/13/2023 FINDINGS: Lower chest: The lower lungs are clear. Liver: The liver is homogeneous with normal contours and normal size. Gallbladder: The gallbladder is unremarkable. There is no intra or extrahepatic biliary dilatation. Pancreas: The pancreas is homogeneous without evidence for mass lesion or inflammation. Spleen: The spleen is unremarkable without evidence for mass lesion. Adrenal glands: The adrenal glands are unremarkable Kidneys and bladder: Moderate right-sided hydronephrosis and perinephric edema. Unremarkable unenhanced left kidney. 3.5 mm stone of the right distal ureter just proximal to the uterovesical junction. Left ureter is normal caliber. The urinary bladder appears unremarkable given lack of distention. GI Tract: Stomach is unremarkable. Visualized small bowel is unremarkable without evidence for obstruction or active inflammation. The appendix is unremarkable.The visualized portion of the large bowel is unremarkable. Reproductive: Unremarkable Lymph nodes: No retroperitoneal or abdominal lymphadenopathy. Vascular: The aorta is not dilated. Peritoneum: No free intraperitoneal air or fluid. No acute inflammation. Abdominal wall: Unremarkable without acute abnormality. CT/CT abdomen pelvis wo con IMPRESSION: 3.5 mm stone of the right distal ureter resulting in moderate right-sided hydroureteronephrosis. Electronically authenticated by: OLINDA DIANE Date: 11/29/2023 20:18
--- NOTE | 2023-11-29 19:39 | ED_ITS ---
HPI - General Adult General Chief complaint: Nausea/Vomiting/Diarrhea Stated complaint: Vomiting UTI Time Seen by Provider: 11/29/23 19:35 History of Present Illness HPI narrative: And is a 38-year-old male with a history of kidney stones who presents to the ER for right lateral abdominal pain for the last day. He states since yesterday he has noticed pain in the right side of the abdomen. He has no back pain. He reports nausea and vomiting as well as pain with urination. He states he has decreased urination but no hematuria. No objective fevers or upper respiratory symptoms. He was seen in this emergency department almost 4 months ago for kidney stones. He has had no previous abdominal surgeries. No medications taken prior to arrival. Related Data Home Medications ?Medication ?Instructions ?Recorded ?Confirmed albuterol sulfate 90 mcg/actuation 1 inh inhalation Q6H PRN shortness 10/07/23 10/07/23 breath activated powder inhaler of breath citalopram 10 mg tablet 10 mg PO DAILY 10/29/23 10/29/23 Previous Rx's ?Medication ?Instructions ?Recorded cephalexin 500 mg capsule 500 mg PO Q8H 7 days #21 caps 11/29/23 ondansetron 4 mg disintegrating 4 mg PO Q6H PRN nausea and 11/29/23 tablet vomiting #12 tabs oxycodone-acetaminophen 5 mg-325 1 tab PO Q6H PRN pain 4 days #15 11/29/23 mg tablet (Percocet) tabs tamsulosin 0.4 mg capsule (Flomax) 0.4 mg PO DAILY #7 caps 11/29/23 Allergies Allergy/AdvReac Type Severity Reaction Status Date / Time amoxicillin Allergy Intermediate Verified 11/29/23 19:32 ampicillin Allergy Intermediate Verified 11/29/23 19:32 Penicillins Allergy Intermediate Verified 11/29/23 19:32 Review of Systems ROS Constitutional Denies: fever or chills Ears, nose, mouth, and throat Denies: throat pain or nasal congestion Respiratory Denies: shortness of breath Gastrointestinal Reports: abdominal pain, nausea and vomiting; Denies: diarrhea Genitourinary Reports: painful urination Musculoskeletal Denies: back pain Integumentary/Breast Denies: rash Neurological Denies: headache Endocrine Denies: excessive urination Hematologic/Lymphatic Denies: easy bruising or easy bleeding PFSH PFSH Social History Smoking status: Never smoker Exam Narrative Exam Narrative: Gen.: Awake, alert, in no distress Head: Normocephalic, atraumatic ENT: Moist mucous membranes Respiratory: No respiratory distress, lungs clear bilaterally Cardio: Regular rate and rhythm Gastrointestinal: Abdomen is soft, nondistended and Tender to palpation in the suprapubic, right lower quadrant and right lateral abdomen with no McBurney's point tenderness or guarding. No CVA tenderness Extremities: Moves extremities equally Psych: Normal mood and affect Neuro: No focal neuro deficit Skin: Warm, dry, intact Constitutional Vital Signs, click to edit/add: Last Vital Signs Temp 97.6 F 11/29/23 19:29 Pulse 70 11/29/23 21:25 Resp 14 11/29/23 21:25 BP 110/70 11/29/23 21:25 Pulse Ox 98 11/29/23 21:25 O2 Del Method Room Air 11/29/23 21:25 Course Vital Signs Vital signs: Vital Signs Temperature 97.6 F 11/29/23 19:29 Pulse Rate 75 11/29/23 19:29 Respiratory Rate 18 11/29/23 19:29 Blood Pressure 142/77 H 11/29/23 19:29 Pulse Oximetry 98 11/29/23 19:29 Oxygen Delivery Method Room Air 11/29/23 19:29 Temperature 97.6 F 11/29/23 19:29 Pulse Rate 70 11/29/23 21:25 Respiratory Rate 14 11/29/23 21:25 Blood Pressure 110/70 11/29/23 21:25 Pulse Oximetry 98 11/29/23 21:25 Oxygen Delivery Method Room Air 11/29/23 21:25 Medical Decision Making MDM Narrative Medical decision making narrative: Patient medicated with IV fluids, Dilaudid, Toradol, Zofran. He is resting much more comfortably looking at his cell phone on reevaluation. Labs show leukocytosis although the patient had leukocytosis more significantly on his most previous Visit. He has minimal acute kidney injury with a creatinine of 1.7. Urine specimen with no evidence of UTI and lactic acid is normal. Patient with stable vital signs, no evidence of sepsis at this time. Suspect leukocytosis and minimal acute kidney injury may be secondary to vomiting for the last 2 days. He had no episodes of emesis in the ER. He will be discharged home with Percocet, Flomax, Keflex, Zofran. CT shows the patient has a 3.5 mm stone with moderate hydronephrosis on the right UVJ. He strongly encouraged to follow-up with urology, return to the ER if symptoms change or worsen. Medical Records Medical records reviewed: Yes I reviewed the patient's medical records Lab Data Lab results reviewed: Yes I reviewed the patient's lab results Labs: Lab Results 11/29/23 11/29/23 Range/Units 19:35 19:45 WBC 17.2 H (4.0-11.0) 10^3/uL RBC 4.94 (4.70-6.10) 10^6/uL Hgb 14.1 (14.0-18.0) g/dL Hct 41.5 L (42.0-54.0) % MCV 84.0 (80.0-94.0) fL MCH 28.5 (25.9-34.0) pg MCHC 34.0 (29.9-35.2) g/dL RDW 13.6 (11.0-15.0) % Plt Count 243 (150-450) 10^3/uL MPV 9.7 (9.5-13.5) fL Seg Neuts % (Manual) 90.0 Lymphocytes % (Manual) 5.0 L (20.5-60.0) % Atypical Lymphs % (Man) 3.0 % Monocytes % (Manual) 2.0 (1.7-12.0) % Eosinophils % (Manual) 0.0 L (0.9-7.0) % Basophils % (Manual) 0.0 L (0.2-2.0) % Neutrophils # (Manual) 15.48 H (1.4-6.5) 10^3/uL Lymphocytes # (Manual) 0.86 L (1.20-3.80) 10^3/uL Abs Atypical Lymphs Man 0.51 Monocytes # (Manual) 0.34 (0.30-0.80) 10^3/uL Eosinophils # (Manual) 0.00 (0.00-0.70) 10^3/uL Basophils # (Manual) 0.00 (0.00-0.10) 10^3/uL Sodium 137 (136-145) mmol/L Potassium 3.1 L (3.5-5.1) mmol/L Chloride 99 (98-107) mmol/L Carbon Dioxide 25.7 (21.0-32.0) mmol/L Anion Gap 15.4 BUN 24.0 H (7.0-18.0) mg/dL Creatinine 1.72 H (0.70-1.30) mg/dL Est GFR ( Amer) 55 L (>=60) Est GFR (Non-Af Amer) 45 L (>=60) BUN/Creatinine Ratio 14.0 Glucose 129 H (74-106) mg/dL Lactate 1.9 (0.4-2.0) mmol/L Calcium 9.4 (8.5-10.1) mg/dL Total Bilirubin 0.8 (0.2-1.0) mg/dL AST 17 (15-37) U/L ALT 19 (16-63) U/L Alkaline Phosphatase 67 (46-116) U/L Total Protein 8.1 (6.4-8.2) g/dL Albumin 4.4 (3.4-5.0) g/dL Globulin 3.7 g/dL Albumin/Globulin Ratio 1.2 Urine Color Yellow (YELLOW) Urine Clarity Clear (CLEAR) Urine pH 5.5 (5.0-9.0) Ur Specific [place] >=1.030 A (1.005-1.025) Urine Protein 30 A (NEG/TRACE) mg/dL Urine Glucose (UA) Negative (NEGATIVE) mg/dL Urine Ketones 40 A (NEGATIVE) mg/dL Urine Occult Blood Large A (NEGATIVE) Urine Nitrite Negative (NEGATIVE) Urine Bilirubin Negative (NEGATIVE) Urine Urobilinogen 0.2 (0.2-1.0) EU/dL Ur Leukocyte Esterase Negative (NEGATIVE) Urine RBC 2-5 A (0-2) #/HPF Urine WBC 2-5 A (NONE SEEN) #/HPF Ur Squamous Epith Cells None seen (NONE/RARE) #/LPF Urine Crystals Seen A (None Seen) #/HPF Calcium Oxalate Crystal Few Amorphous Sediment Many Urine Bacteria Trace A (NONE SEEN) #/HPF Urine Casts None seen (NONE SEEN) #/LPF Urine Mucus Moderate A (NONE SEEN) Imaging Data CT scan - abdomen: Attestation: I have reviewed the pertinent imaging results. Radiologist's impression: ITS Impressions Abdomen/Pelvis CT 11/29/23 19:35 IMPRESSION: 3.5 mm stone of the right distal ureter resulting in moderate right-sided hydroureteronephrosis. Electronically authenticated by: OLINDA DIANE Date: 11/29/2023 20:18 Discharge Plan Discharge Stand Alone Forms: Portal Instructions Chief Complaint: Nausea/Vomiting/Diarrhea Clinical Impression: Nausea & vomiting, Kidney stone on right side Patient Disposition: Home, Self-Care Time of Disposition Decision: 20:49 Condition: Good Prescriptions / Home Meds: New cephalexin 500 mg capsule 500 mg PO Q8H 7 Days Qty: 21 0RF oxycodone-acetaminophen [Percocet] 5-325 mg tablet 1 tab PO Q6H PRN (Reason: pain) 4 Days Qty: 15 0RF Rx Instructions: Dx: N20.0 ondansetron 4 mg tablet,disintegrating 4 mg PO Q6H PRN (Reason: nausea and vomiting) Qty: 12 0RF tamsulosin [Flomax] 0.4 mg capsule 0.4 mg PO DAILY Qty: 7 0RF No Action albuterol sulfate 90 mcg/actuation aerosol powdr breath activated 1 inh inhalation Q6H PRN (Reason: shortness of breath) citalopram 10 mg tablet 10 mg PO DAILY Print Language: Kiswahili Instructions: Kidney Stones (ED) Referrals: Paul Jones MD [Physician] - 1 week Davonte Kohler MD [Primary Care Provider] - 1 week Discharge Date/Time: 11/29/23 21:31
[2023-11-29 19:53] LABS: Hematocrit 41.5 % (42.0-54.0); Hemoglobin 14.1 g/dL (14.0-18.0); Mean Corpuscular Hemoglobin 28.5 pg (25.9-34.0); Mean Platelet Volume 9.7 fL (9.5-13.5); Platelet Count 243 10^3/uL (150-450); Red Blood Count 4.94 10^6/uL (4.70-6.10); Red Cell Distribution Width 13.6 % (11.0-15.0); White Blood Count 17.2 10^3/uL (4.0-11.0)
[2023-11-29] MEDS: 0.9 % SODIUM CHLORIDE 1,000 ML 1000 ML IV (19:58)
[2023-11-29] MEDS: KETOROLAC TROMETHAMINE 30 MG/ML VIAL IVP (19:58)
[2023-11-29] MEDS: HYDROMORPHONE HCL 1 MG/ML CARTRIDGE IVP (19:59)
[2023-11-29] MEDS: ONDANSETRON PF 4 MG/2 ML VIAL IV (19:59)
[2023-11-29 20:05] LABS: Alanine Aminotransferase 19 U/L (16-63); Albumin Globulin Ratio 1.2; Albumin Level 4.4 g/dL (3.4-5.0); Alkaline Phosphatase 67 U/L (46-116); Anion Gap 15.4; Aspartate Amino Transferase 17 U/L (15-37); Bilirubin Total 0.8 mg/dL (0.2-1.0); Calcium 9.4 mg/dL (8.5-10.1); Carbon Dioxide 25.7 mmol/L (21.0-32.0); Chloride 99 mmol/L (98-107); Estimated GFR (African America 55 (>=60); Estimated GFR (Non-African Ame 45 (>=60); Globulin 3.7 g/dL; Glucose 129 mg/dL (74-106); Potassium 3.1 mmol/L (3.5-5.1); Sodium 137 mmol/L (136-145); Total Protein 8.1 g/dL (6.4-8.2)
[2023-11-29 20:08] LABS: Lactate/Lactic Acid 1.9 mmol/L (0.4-2.0)
[2023-11-29 20:15] LABS: Bilirubin Urine NEGATIVE (NEGATIVE); Blood Urine LARGE (NEGATIVE); Clarity Urine CLEAR (CLEAR); Color Urine YELLOW (YELLOW); Glucose Urine UA NEGATIVE (NEGATIVE); Ketones Urine 40 mg/dL (NEGATIVE); Leukocyte Esterase Urine NEGATIVE (NEGATIVE); Nitrite Urine NEGATIVE (NEGATIVE); Protein Urine 30 mg/dL (NEG/TRACE); Specific Gravity Urine >=1.030 (1.005-1.025); Urobilinogen Urine 0.2 EU/dL (0.2-1.0); pH Urine 5.5 (5.0-9.0)
[2023-11-29 20:29] LABS: Urine Microscopic Indicated YES
[2023-11-29 20:30] LABS: Bacteria Urine TRACE #/HPF (NONE SEEN); Mucus Urine MODERATE (NONE SEEN)
[2023-11-29 20:31] LABS: Amorphous Sediment Urine MANY; Calcium Oxalate Crystals Urine FEW; Cast Seen? NONE SEEN #/LPF (NONE SEEN); Crystals Seen? Seen #/HPF (None Seen); Squamous Epithelial Cell Urine NONE SEEN #/LPF (NONE/RARE)
[2023-11-29 20:38] LABS: Atypical Lymphocytes Abs Man 0.51; Lymphocytes Absolute Manual 0.86 10^3/uL (1.20-3.80); Monocytes Absolute Manual 0.34 10^3/uL (0.30-0.80); Segmented Neut Absolute Manual 15.48 10^3/uL (1.4-6.5)
[2023-11-29] MEDS: CEPHALEXIN 500 MG CAPSULE PO (21:14)
[2023-11-29] MEDS: PROMETHAZINE HCL 25 MG/ML VIAL 12.5 MG IV (21:14)
[2023-11-29] MEDS: TAMSULOSIN HCL 0.4 MG CAPSULE 0.400000000000000022 MG PO (21:14)
[2023-11-29] MEDS: OXYCODONE HCL/ACETAMINOPHEN 5MG/325MG 2 TAB PO (21:18)
[2023-11-29] MEDS: ONDANSETRON 4 MG RAPDIS TABLET SL (21:19)
[2023-11-29 21:25] VITALS: BP 110/70; PULSE 70; RESP 14; O2SAT 98
== END 2023-11-29 21:31 | disposition home or self-care (01) ==
PROVIDERS: Physician Assistant; Emergency Provider Emergency Medicine; PCP Family Medicine
DX: N13.2 Hydronephrosis with renal and ureteral calculous obstruction (principal); R11.2 Nausea with vomiting, unspecified; Z87.442 Personal history of urinary calculi
CPT/HCPCS: 36415; 74176; 80053; 81001; 83605; 85007; 85027; 96361; 96374; 96375; 99285; J1170

== ENCOUNTER 2024-10-04 10:19 | Outpatient (OUT) | payer OTHER, SELFPAY ==
--- OUTSIDE RECORDS SUMMARY | 2024-10-04 10:41 | XMS_ITS | CCD ---
Author Organization [facility] Team Providers Care Instrument Technician Name Role Phone [place] II Unavailable ANDREE, DR OPAL Patterson Attending Unavailable ANDREE, DR OPAL Patterson Consulting Unavailable ANDREE, DR OPAL Patterson Admitting Unavailable NADERER, DR DAVONTE Leong Primary Care Unavailable CHEPE WEAVER Consulting Unavailable NADERER, DR DAVONTE Leong Attending Unavailable NADERER, DR DAVONTE Leong Consulting Unavailable NADERELeonardo, DR DAVONTE Leong Primary Care Unavailable NADERELeonardo, DR DAVONTE Leong Admitting Unavailable ZIEBER, DR CHEPE Patterson Consulting Unavailable CHIDI LUONG Attending Unavailable CHERISE, CHIDI Admitting Unavailable NADERELeonardo, DR DAVONTE Leong Primary Care Unavailable CHIDI LUONG Consulting Unavailable Davonte Rucker MD Primary Care Provider Davonte Rucker MD Unavailable DAVONTE RUCKER Attending Unavailable NADERER, DAVONTE Attending Unavailable NADERER, DAVONTE Attending Unavailable APLING, DANICA Mike Attending Unavailable NADERER, DAVONTE Referring Unavailable APLING, DANICA Mike Referring Unavailable NADERER, DAVONTE Attending Unavailable NADERER, DAVONTE Attending Unavailable Allergies Allergy Classification Reported Allergen(s) Allergy Type Date of Onset Reaction(s) Facility (2 sources) Azithromycin Drug Allergy anaphylaxis [employer] [facility] [employer] Other (15 sources) Iodine Drug Allergy 4 Shortness of breath [employer] [facility] [employer] Other (2 sources) Penicillin V Drug Allergy swelling [employer] Other (1 source) Azithromycin Drug Allergy [facility] Repository (1 source) Penicillin Drug Allergy [facility] (1 source) Iodine and Iodide Containing Products Drug allergy (disorder) [facility] Repository (13 sources) Amoxicillin Drug Allergy 4 Swelling [facility] (13 sources) Erythromycin Drug Allergy 4 Swelling [facility] (13 sources) Penicillins Drug Allergy 4 Swelling [facility] Medications Current Medications Medication Drug Class(es) Dates Sig (Normalized) Sig (Original) acetaminophen 325 mg / HYDROcodone bitartrate 5 mg oral tablet (2 sources) Opioid Agonist Start: 09-24-2024 End: 09-29-2024 take 1 tablet by mouth four times daily as needed for pain HYDROcodone-acetamin ophen ([place]) 5-325 MG tablet Indications: Cervical strain, acute, initial encounter Take 1 tablet by mouth 4 (four) times a day as needed for severe pain for up to 5 days 20 tablet 09/24/2024 09/29/2024 Active [id number] 200 actuat albuterol 0.09 mg/actuat metered dose inhaler (13 sources) beta2-Adrenergic Agonist Start: 02-15-2024 take 2 puff(s) by inhalation every four hours for wheezing albuterol HFA 90 mcg/act inhaler Indications: Mild intermittent asthma without complication (CMS/[facility]) Inhale 2 puffs every 4 (four) hours if needed for wheezing or shortness of breath 18 g 3 02/15/2024 Active cetirizine hydrochloride 10 mg oral tablet (3 sources) Histamine-1 Receptor Antagonist Start: 02-15-2024 End: 08-14-2024 take 1 tablet by mouth once daily cetirizine (ZyrTEC) 10 MG tablet Indications: Seasonal allergic rhinitis due to pollen Take 1 tablet (10 mg) by mouth Daily 30 tablet 5 02/15/2024 08/14/2024 Discontinued cholecalciferol 0.05 mg oral capsule (2 sources) Vitamin D take 1 capsule by mouth every twenty-four hours Vitamin D3 50 MCG (1999 UT) 1 capsule Orally Once a day Active citalopram 20 mg oral tablet (3 sources) Serotonin Reuptake Inhibitor Start: 07-17-2024 End: 08-14-2024 take 1 tablet by mouth once daily citalopram (CeleXA) 20 MG tablet Indications: LUIS (generalized anxiety disorder) (CMS/HCC) TAKE 1 TABLET BY MOUTH DAILY 30 tablet 3 07/17/2024 08/14/2024 Discontinued (Ineffective) cyclobenzaprine hydrochloride 10 mg oral tablet (2 sources) Muscle Relaxant Start: 09-24-2024 take 1 tablet by mouth three times daily as needed for muscle spasms cyclobenzaprine (Flexeril) 10 MG tablet Indications: Cervical strain, acute, initial encounter Take 1 tablet (10 mg) by mouth 3 (three) times a day as needed for muscle spasms 30 tablet 09/24/2024 Active Start: 09-24-2024 take 1 tablet by ria th three times daily as needed for muscle spasms cyclobenzaprine (Flexeril) 10 MG tablet Indications: Cervical strain, acute, initial encounter Take 1 tablet (10 mg) by mouth 3 (three) times a day as needed for muscle spasms 30 tablet 09/24/2024 Active hydrOXYzine hydrochloride 25 mg oral tablet (13 sources) Antihistamine Start: 11-15-2023 take 1 tablet by mouth four times daily as needed for anxiety hydrOXYzine HCl (Atarax) 25 MG tablet Indications: LUIS (generalized anxiety disorder) (CMS/HCC) Take 1 tablet (25 mg) by mouth 4 (four) times a day as needed for anxiety 60 tablet 3 11/15/2023 Active ketorolac tromethamine 10 mg oral tablet (2 sources) Nonsteroidal Anti-inflammatory Drug, Cyclooxygenase Inhibitor take 1 tablet by mouth every six hours at mealtime as needed Ketorolac Tromethamine 10 MG 1 tablet with food or milk as needed Orally every 6 hrs Active methylPREDNISolone (6 sources) Corticosteroid Start: 08-19-2024 End: 09-13-2024 methylPREDNISolone (Medrol Dospak) 4 MG tablets Indications: Internal derangement of right knee Follow schedule on package instructions 21 tablet 08/19/2024 09/13/2024 Discontinued Start: 08-19-2024 methylPREDNISo lone (Medrol Dospak) 4 MG tablets Indications: Internal derangement of right knee Follow schedule on package instructions 21 tablet 08/19/2024 Active montelukast 10 mg oral tablet (3 sources) Leukotriene Receptor Antagonist Start: 02-15-2024 End: 08-14-2024 take 1 tablet by mouth once daily montelukast (Singulair) 10 MG tablet Indications: Mild intermittent asthma without complication (CMS/HCC) Take 1 tablet (10 mg) by mouth Daily 30 tablet 5 02/15/2024 08/14/2024 Discontinued predniSONE 50 mg oral tablet (2 sources) Start: 09-24-2024 End: 09-30-2024 take 1 tablet by mouth once daily predniSONE (Deltasone) 50 MG tablet Indications: Cervical strain, acute, initial encounter Take 1 tablet (50 mg) by mouth Daily for 6 days 6 tablet 09/24/2024 09/30/2024 Active sertraline 50 mg oral tablet (12 sources) Serotonin Reuptake Inhibitor Start: 08-14-2024 take 1 tablet by mouth once daily sertraline (Zoloft) 50 MG tablet Indications: MDD (major depressive disorder), recurrent episode, moderate (CMS/HCC) Take 1 tablet (50 mg) by mouth Daily 30 tablet 3 08/14/2024 Active Problems Active Problems Problem Classification Problem Date Documented Da te Episodic/Chronic Abdominal pain (4 sources) Right flank pain; Translations: [Unspecified abdominal pain] Onset: 09-24-2024 09-24-2024 Episodic Administrative/social admission (1 source) Encounter for issue of repeat prescription; Translations: [ENC FOR ISSUE REPEAT PRESCRIPTION] Onset: 08-22-2022 Episodic Anxiety disorders (15 sources) Generalized anxiety disorder; Translations: [Generalized anxiety disorder] Onset: 10-17-2023 10-17-2023 Chronic Asthma (13 sources) Mild intermittent asthma; Translations: [Mild intermittent asthma, uncomplicated] Onset: 02-15-2024 02-15-2024 Chronic Influenza (1 source) Influenza due to other identified influenza virus with other respiratory manifestations; Translations: [FLU D/T OTH ID FLU VIR OTH RSP MANF] Onset: 08-22-2022 Episodic Joint disorders and dislocations; trauma-related (4 sources) Derangement of right knee; Translations: [Unspecified internal derangement of right knee] 08-19-2024 Chronic Mood disorders (16 sources) Moderate recurrent major depression; Translations: [Major depressive disorder, recurrent, moderate] Onset: 08-14-2024 08-14-2024 Chronic Nutritional deficiencies (14 sources) Vitamin D deficiency, unspecified; Translations: [Vitamin D deficiency] Onset: 05-13-2022 02-15-2024 Chronic Other connective tissue disease (16 sources) Synovial cyst of popliteal space [Rivas], right knee; Translations: [Synovial cyst of popliteal space] Onset: 08-14-2024 08-14-2024 Episodic Other non-traumatic joint disorders (20 sources) Pain in right knee; Translations: [Pain in joint, lower leg] Onset: 08-14-2024 08-14-2024 Episodic Other upper respiratory disease (13 sources) Allergic rhinitis due to pollen; Translations: [Allergic rhinitis due to pollen] Onset: 02-15-2024 02-15-2024 Chronic Sprains and strains (4 sources) Strain of neck muscle; Translations: [Strain of muscle, fascia and tendon at neck level, initial encounter] Onset: 09-24-2024 09-24-2024 Episodic Unclassified (2 sources) COUGH, UNSPECIFIED; Translations: [COUGH, UNSPECIFIED] Onset: 08-22-2022 Unclassified (1 source) CONTACT W/AND (SUSP) EXPOS COVID-19; Translations: [CONTACT W/AND (SUSP) EXPOS COVID-19] Onset: 08-22-2022 Unclassified (2 sources) Chronic pain of right knee 08-14-2024 Past or Other Problems Problem Classification Problem [...] COUGH, UNSPECIFIED; Translations: [COUGH, UNSPECIFIED] Onset: 08-18-2022 Unclassified (2 sources) Rivas cyst, right 08-14-2024 Results Test Name Value Interpretation Reference Range Facility XR Knee - right 3 [facility] Result: Multiple views of right knee showed no acute bony process including but not limited to fracture and/or dislocation. Overall anatomic alignment appeared to be well preserved. There was no acute bony process including but not limited to fracture and/or dislocation. Impression: No acute bony process, right knee. [facility] XR Knee - right 3 ViewsOrder ed By: Jr. Daugherty on 08-21-2024 [facility]: XR Knee - right 3 [facility] Study observation (narrative) [facility] Covid-19 PCR ([facility])on SARS-CoV-2 (COVID-19) RNA BRANDI+probe Ql (Unsp spec) Not detected Normal NOT DETECTED [facility] Comment on above: Result Comment: When diagnostic [...] for this test is supported by the [place] of Health and Human Service's declaration that [...] be used). Performed By: #### C VDTBH ####[facility] [id number] [place], [place] [address]VtDr. Hailee Bourgeois GROUP A STREP CULTUREon S. pyogenes Ag Ql (Unsp spec) Culture Observations: NEGATIVE FOR GROUP A STREPTOCOCCUS. Normal [facility] Comment on above: Performed By: #### S SCRN, GRASTCX #### [facility] [address] [place], [place] [address] Dr. Hailee Bourgeois INFLUENZA A AND B AGon 08-18 INFLUBNEGH SEE BELOW Normal [facility] Comment on above: Result Comment: Nega tive for Flu B protein antigen. Infection due to Flu B cannot be ruled out. Flu B antigen in the sample may be below the detection limit of the test. Performed By: #### I NFLUAB #### [facility] [address] [place] [address] [address] Hailee Bourgeois INFLUENZA A AG Positive Abnormal NEGATIVE SEE COMMENT [facility] Comment on above: Performed By: #### I NFLUAB #### [facility] [address] [place] [address] [address] Hailee Bourgeois INFLUENZA B AG Negative Normal NEGATIVE SEE COMMENT [facility] Comment on above: Performed By: #### I NFLUAB #### [facility] [address] [place] [address] [address] Hailee Bourgeois INFLUPOSH SEE BELOW Normal [facility] Comment on above: Result Comment: NOTE : Live attenuated influenzae vaccine viruses can cause a positive result for a rapid influenza diagnostic test if administered up to 7 days prior to rapid testing. Performed By: #### I NFLUAB #### [facility] [address] [place] [address] [address] Hailee Bourgeois INTERNAL CONTROLS Within Normal Limits Normal Wi thin Normal Limits [facility] Comment on above: Performed By: #### I NFLUAB #### [facility] [address] [place] [address] [address] Hailee Bourgeois STREPT SCREENon 08-18-2022 STREP SCREEN A Negative Normal NEGATIVE [facility] Comment on above: Performed By: #### S SCRN, GRASTCX #### [facility] [address] [place] [address] [address] Hailee Bourgeois XR CHEST 1 Von 08-18-2022 XR CHEST 1 V EXAMINATION: XR CHEST 1 V HISTORY: COUGH , chest pain, [...] CHEPE HARDY Date: 2022-08-18 14:53 Normal [facility] VIT D 25-OH LABCORPon 2021 Vitamin D, 25-Hydroxy 31.7 ng/mL Normal 30.0-100.0 [facility] Comment on above: Result Comment: Gia min D deficiency has been defined by the [place] of Medicine and an Endocrine Society practice guideline as a level of serum 25-OH vitamin D less than 20 ng/mL (1,2). The Endocrine Society went on to further define vitamin D insufficiency as a level between 21 and 29 ng/mL (2). 1. IOM ([place] of [employer]). 2010. Dietary reference intakes for calcium and D. [place]: The National Academies Press. 2. Shira MF, Anjelica NC, Tommy DAIGLE, et al. Evaluation, treatment, and prevention of vitamin D deficiency: an Endocrine Society clinical practice guideline. JCEM. 2010; 96(7):1911-30. Performed By: #### V ITADLC ####[facility] [id number] [place] [address]Dr. Hailee Bourgeois CBC AUTO DIFFon 05-12-2022 BASO # 0.1 103/ul Normal 0.0-0.1 [facility] Comment on above: Performed By: #### C BC #### [facility] [address] [place] [address] [address] Hailee Bourgeois Basophils/100 WBC (Bld) 0.6 % Normal 0.2-2.0 [facility] Comment on above: Performed By: #### C BC #### [facility] [address] [place] [address] [address] Hailee Bourgeois EO # 0.2 103/ul Normal 0.0-0.7 [facility] Comment on above: Performed By: #### C BC #### [facility] [address] [place] [address] [address] Hailee Bourgeois Eosinophils/100 WBC (Bld) 2.1 % Normal 0.9-7.0 [facility] Comment on above: Performed By: #### C BC #### [facility] [address] [place] [address] [address] Hailee Bourgeois Erythrocyte distribution width (RBC) [Ratio] 13.5 % Normal 11.0-15.0 [facility] Comment on above: Performed By: #### C BC #### [facility] [address] [place] [address] Dr. Hailee Bourgeois Hematocrit (Bld) [Volume fraction] 44.5 % Normal 42.0-54.0 [facility] Comment on above: Performed By: #### C BC #### [facility] [address] [place] [address] Dr. Hailee Bourgeois Hemoglobin (Bld) [Mass/Vol] 15.0 g/dL Normal 14.0-18.0 [facility] Comment on above: Performed By: #### C BC #### [facility] [address] [place] [address] Dr. Hailee Bourgeois IG # 0.02 10e3/ul Normal 0.00-0.03 [facility] Comment on above: Performed By: #### C BC #### [facility] [address] [place] [address] Dr. Hailee Bourgeois IG % 0.2 % Normal 0.0-0.5 [facility] Comment on above: Performed By: #### C BC #### [facility] [address] [place] [address] Dr. Hailee Bourgeois LYMPH # 2.0 103/ul Normal 1.2-3.8 [facility] Comment on above: Performed By: #### C BC #### [facility] [address] [place] [address] Dr. Hailee Bourgeois Lymphocytes/100 WBC (Bld) 24.5 % Normal 20.5-60.0 [facility] Comment on above: Performed By: #### C BC #### [facility] [address] [place] [address] Dr. Hailee Bourgeois MANUAL DIFF REQ NO Normal [facility] Comment on above: Performed By: #### C BC #### [facility] [address] [place] [address] Dr. Hailee Bourgeois MCH (RBC) [Entitic mass] 28.5 pg Normal 25.9-34.0 [facility] Comment on above: Performed By: #### C BC #### [facility] [address] [place] [address] [address] Hailee Bourgeois MCHC (RBC) [Mass/Vol] 33.7 g/dL Normal 29.9-35.2 [facility] Comment on above: Performed By: #### C BC #### [facility] [address] [place] [address] Dr. Hailee Bourgeois MCV (RBC) [Entitic vol] 84.6 fL Normal 80.0-94.0 [facility] Comment on above: Performed By: #### C BC #### [facility] [address] [place] [address] Dr. Hailee Bourgeois MONO # 0.6 103/ul Normal 0.3-0.8 [facility] Comment on above: Performed By: #### C BC #### [facility] [address] [place] [address] Dr. Hailee Bourgeois Monocytes/100 WBC (Bld) 7.0 % Normal 1.7-12.0 [facility] Comment on above: Performed By: #### C BC #### [facility] [address] [place] [address] Dr. Hailee Bourgeois NEUT # 5.3 103/ul Normal 1.4-6.5 [facility] Comment on above: Performed By: #### C BC #### [facility] [address] [place] [address] Dr. Hailee Bourgeois Neutrophils/100 WBC (Bld) 65.6 % Normal 43.0-75.0 [facility] Comment on above: Performed By: #### C BC #### [facility] [address] [place] [address] Dr. Hailee Bourgeois Platelet mean volume (Bld) [Entitic vol] 10.6 fL Normal 9.5-13.5 [facility] Comment on above: Performed By: #### C BC #### [facility] [address] [place] [address] Dr. Hailee Bourgeois PLT 216 103/ul Normal 150-450 [facility] Comment on above: Performed By: #### C BC #### [facility] [address] [place] [address] [address] Hailee Bourgeois RBC 5.26 106/ul Normal 4.70-6.10 [facility] Comment on above: Performed By: #### C BC #### [facility] [address] [place] [address] [address] Hailee Bourgeois WBC 8.1 103/ul Normal 4.0-11.0 [facility] Comment on above: Performed By: #### C BC #### [facility] [address] [place] [address] [address] Hailee Bourgeois GLYCOHEMOGLOBIN A1Con 2021 ADA RECOMMENDATION SEE BELOW Normal [facility] Comment on above: Result Comment: ADA RECOMMENDED LIMIT 4.0 - 6.0 ADA THERAPEUTIC TARGET < 7.0 ACTION SUGGESTED > 7.0 Performed By: #### A 1C ####[facility] [id number] [place] [address]Dr. Hailee Bourgeois Glucose [Mass/Vol] 91 mg/dL Normal [facility] Comment on above: Performed By: #### A 1C ####[facility] [id number] [place] [address]Dr. Hailee Bourgeois HbA1c (Bld) [Mass fraction] 4.8 % Normal 4.5-6.2 [facility] Comment on above: Performed By: #### A 1C ####[facility] [id number] [place] [address]Dr. Hailee Bourgeois LIPID PROFILEon 05-12-2022 CHOL-HDL RATIO NORM SEE BELOW Normal [facility] Comment on above: Result Comment: 3.3 - 4.4 LOW RISK 4.4 - 7.1 AVERAGE RISK 7.1 - 11.0 MODERATE RISK >11.0 HIGH RISK Performed By: #### T SH, LIPID, LIVER, BMP #### [facility] [address] [place] [address] [address] Hailee Bourgeois Cholesterol [Mass/Vol] 195 mg/dL Normal <=200 [facility] Comment on above: Performed By: #### T SH, LIPID, LIVER, BMP #### [facility] [address] [place] [address] [address] Hailee Bourgeois Cholesterol in HDL [Mass/Vol] 39 mg/dL Critically low 40-60 [facility] Comment on above: Performed By: #### T SH, LIPID, LIVER, BMP #### [facility] [address] [place] [address] [address] Hailee Bourgeois Cholesterol in LDL [Mass/Vol] 138.2 mg/dL Normal [facility] Comment on above: Performed By: #### T SH, LIPID, LIVER, BMP #### [facility] [address] [place] [address] [address] Hailee Bourgeois Cholesterol.total/Cho lesterol in HDL [Mass ratio] 5.0 {ratio} Normal [facility] Comment on above: Performed By: #### T SH, LIPID, LIVER, BMP #### [facility] [address] [place] [address] [address] Hailee Bourgeois HDL NORMAL > or = 60 mg/dl - LOW CARDIOVASCULAR RISK <40 mg/dl - HIGH CARDIOVASCULAR RISK Normal [facility] Comment on above: Performed By: #### T , LIPID, LIVER, BMP #### [facility] [address] [place] [address] [address] Hailee Bourgeois LDL CALC NORMAL SEE BELOW Normal [facility] Comment on above: Result Comment: <100 mg/dl OPTIMAL 100 - 129 mg/dl NEAR OR ABOVE OPTIMAL 130 - 159 mg/dl BORDERLINE HIGH 160 - 189 mg/dl HIGH >190 mg/dl VERY HIGH Performed By: #### T , LIPID, LIVER, BMP #### [facility] [address] [place] [address] [address] Hailee Bourgeois Triglyceride [Mass/Vol] 89 mg/dL Normal <=150 [facility] Comment on above: Performed By: #### T SH, LIPID, LIVER, BMP #### [facility] [address] [place] [address] [address] Hailee Bourgeois VLDL CALC 17.8 mg/dL Normal [facility] Comment on above: Performed By: #### T SH, LIPID, LIVER, BMP #### [facility] [address] [place] [address] [address] Hailee Bourgeois LIVER PROFILEon 05-12-2022 Albumin [Mass/Vol] 4.3 g/dL Normal 3.4-5.0 [facility] Comment on above: Performed By: #### T SH, LIPID, LIVER, BMP #### [facility] [address] [place] [address] [address] Hailee Bourgeois Albumin/Globulin [Mass ratio] 1.3 {ratio} Normal [facility] Comment on above: Performed By: #### T SH, LIPID, LIVER, BMP #### [facility] [address] [place] [address] [address] Hailee Bourgeois ALP [Catalytic activity/Vol] 77 U/L Normal 46-116 [facility] Comment on above: Performed By: #### T SH, LIPID, LIVER, BMP #### [facility] [address] [place] [address] Dr. Hailee Bourgeois ALT [Catalytic activity/Vol] 30 U/L Normal 16-63 [facility] Comment on above: Performed By: #### T SH, LIPID, LIVER, BMP #### [facility] [address] [place] [address] Dr. Hailee Bourgeois AST [Catalytic activity/Vol] 21 U/L Normal 15-37 [facility] Comment on above: Performed By: #### T SH, LIPID, LIVER, BMP #### [facility] [address] [place] [address] Dr. Hailee Bourgeois BILI, CONJUGATED 0.1 mg/dL Normal 0.0-0.2 [facility] Comment on above: Performed By: #### T SH, LIPID, LIVER, BMP #### [facility] [address] [place] [address] [address] Hailee Bourgeois Bilirubin [Mass/Vol] 0.6 mg/dL Normal 0.2-1.0 [facility] Comment on above: Performed By: #### T SH, LIPID, LIVER, BMP #### [facility] [address] [place] [address] Dr. Hailee Bourgeois Globulin (S) [Mass/Vol] 3.4 g/dL Normal [facility] Comment on above: Performed By: #### T SH, LIPID, LIVER, BMP #### [facility] [address] [place] [address] [address] Hailee Bourgeois Protein [Mass/Vol] 7.7 g/dL Normal 6.4-8.2 [facility] Comment on above: Performed By: #### T SH, LIPID, LIVER, BMP #### [facility] [address] [place] [address] [address] Hailee Bourgeois PROF CHEM 8 (BAS METB)on Anion gap [Moles/Vol] 11.3 mmol/L Normal [facility] Comment on above: Performed By: #### T SH, LIPID, LIVER, BMP #### [facility] [address] [place] [address] Dr. Hailee Bourgeois Calcium [Mass/Vol] 9.3 mg/dL Normal 8.5-10.1 [facility] Comment on above: Performed By: #### T SH, LIPID, LIVER, BMP #### [facility] [address] [place] [address] Dr. Hailee Bourgeois Chloride [Moles/Vol] 104 mmol/L Normal 98-107 [facility] Comment on above: Performed By: #### T SH, LIPID, LIVER, BMP #### [facility] [address] [place] [address] Dr. Hailee Bourgeois CO2 [Moles/Vol] 30.1 mmol/L Normal 21.0-32.0 [facility] Comment on above: Performed By: #### T SH, LIPID, LIVER, BMP #### [facility] [address] [place] [address] Dr. Hailee Bourgeois Creatinine [Mass/Vol] 1.00 mg/dL Normal 0.70-1.30 [facility] Comment on above: Performed By: #### T SH, LIPID, LIVER, BMP #### [facility] [address] [place] [address] Dr. Hailee Bourgeois EGFR-AF ARMENIAN >60 Normal >=[address] [facility] Comment on above: Performed By: #### T SH, LIPID, LIVER, BMP #### [facility] [address] [place] [address] [address] Hailee Bourgeois EGFR-NON AF ARMENIAN >60 Normal >=60 [facility] Comment on above: Performed By: #### T SH, LIPID, LIVER, BMP #### [facility] [address] [place] [address] [address] Hailee Bourgeois Glucose [Mass/Vol] 96 mg/dL Normal 74-106 [facility] Comment on above: Performed By: #### T SH, LIPID, LIVER, BMP #### [facility] Laboratory [address] [address] [address] Hailee Bourgeois Potassium [Moles/Vol] 3.4 mmol/L Critically low 3.5-5.1 [facility] Comment on above: Performed By: #### T SH, LIPID, LIVER, BMP #### [facility] [address] [address] [address] Hailee Bourgeois Sodium [Moles/Vol] 142 mmol/L Normal 136-145 [facility] Comment on above: Performed By: #### T SH, LIPID, LIVER, BMP #### [facility] [address] [address] [address] Hailee Bourgeois Urea nitrogen [Mass/Vol] 9.0 mg/dL Normal 7.0-18.0 [facility] Comment on above: Performed By: #### T SH, LIPID, LIVER, BMP #### [facility] [address] [address] [address] Hailee Bourgeois Urea nitrogen/Creatinine [Mass ratio] 9.0 mg/mg Normal [facility] Comment on above: Performed By: #### T SH, LIPID, LIVER, BMP #### [facility] [address] [address] [address] Hailee Bourgeois TSHon 05-12-2022 TSH 1.788 uIU/mL Normal 0.358-3.740 [facility] Comment on above: Performed By: #### T SH, LIPID, LIVER, BMP #### [facility] [address] [place] [address] Dr. Hailee Bourgeois XR hand LT min 3V*on 022 XR hand LT min 3V* [facility] [address] [place] [address] XRay Report Signed Patient: Martir Dunn MR#: [id number] 32 : 1985 Acct:[id number] Age/Sex: 36 / M ADM Date: 11/24/21 Loc: [facility] Room: Type: [facility] CLI Attending Dr: Rancho Finney II, MD Ordering [...] Neri Jr., M.D.11/24/2021 11:13 AM Dictation Location: [place] [address] Transcribed By: [facility] 11/24/21 1113 Dictated By: Geoffrey Neri Jr, MD 11/24/21 1108 Signed By: 11/24/21 1113 Normal [facility] XR hand LT min 3V*on 022 XR hand LT min 3V* [facility] Main [address] [address] XRay Report Signed Patient: Martir Dunn MR#: [id number] 32 : 1985 Acct:[id number] Age/Sex: 36 / M ADM Date: 10/27/21 Loc: [facility] Room: Type: [facility] CLI Attending Dr: Rancho Finney II, MD Ordering [...] Opal Wiggins M.D.10/27/2021 1:06 PM Dictation Location: [place] [address] Transcribed By: [facility] 10/27/21 1306 Dictated By: Opal Wiggins II, MD 10/27/21 1303 Signed By: 10/27/21 1306 [facility] XR HAND LT MIN 3Von [...] MRI. Electronically authenticated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 Appearance: Normal appearance. HENT: Head: Normocephalic. Right Ear: Tympanic membrane and ear canal normal. Left Ear: Tympanic membrane and ear canal normal. Eyes: Extraocular Movements: Extraocular movements intact. Pupils: Pupils are equal, round, and reactive to light. Cardiovascular: Rate and Rhythm: Normal rate and regular rhythm. Heart sounds: No murmur heard. No friction rub. No gallop. Pulmonary: Breath sounds: Normal breath sounds. No wheezing, rhonchi or rales. Abdominal: General: Bowel sounds are normal. There is no distension. Palpations: Abdomen is soft. Tenderness: There is no abdominal tenderness. There is no guarding or rebound. Musculoskeletal: Left lower leg: No edema. Neurological: Mental Status: He is alert. Assessment/Plan Problem List Items Addressed This Visit LUIS (generalized anxiety disorder) (CMS/HCC) Worsening symptoms and stop celexa since not helping. Start zoloft and warned will take 2-3 weeks to notice improvement in mood. Use hydroxyzine PRN. MDD (major depressive disorder), recurrent episode, moderate (CMS/HCC) - Primary Worsening symptoms and stop celexa since not helping. Start zoloft and warned will take 2-3 weeks to notice improvement in mood. Relevant Medications sertraline (Zoloft) 50 MG tablet Chronic pain of right knee Increased pain and refer back to ortho. Use OTC PRN. Relevant Orders Ambulatory referral to Orthopaedic Surgery Rivas cyst, right Increased pain and refer back to ortho. Use OTC PRN. Relevant Orders Ambulatory referral to Orthopaedic Surgery documented in this encounter [facility] 11-24-2021 Evaluation note Encounter Date Diagnosis Assessment [...] anything new in the future. Patient agreed. [facility] Other Evaluation [facility] Other Evaluation note* Diagnosis LUIS (generalized anxiety disorder) (CMS/HCC)- Primary Generalized anxiety disorder LUIS (generalized anxiety disorder) (CMS/HCC)- Primary Generalized anxiety disorder Mild intermittent asthma without complication (CMS/HCC) Seasonal allergic rhinitis due to pollen MDD (major depressive disorder), recurrent episode, moderate (CMS/HCC)- Primary LUIS (generalized anxiety disorder) (CMS/HCC) Generalized anxiety disorder Chronic pain of right knee Rivas cyst, right [facility] Diagnosis LUIS (generalized anxiety disorder) (CMS/HCC)- Primary Generalized anxiety disorder LUIS (generalized anxiety disorder) (CMS/HCC)- Primary Generalized anxiety disorder Mild intermittent asthma without complication (CMS/HCC) Seasonal allergic rhinitis due to pollen MDD (major depressive disorder), recurrent episode, moderate (CMS/HCC)- Primary LUIS (generalized anxiety disorder) (CMS/HCC) Generalized anxiety disorder Chronic pain of right knee Rivas cyst, right Right knee pain, unspecified chronicity- Primary Chronic pain of right knee Rivas cyst, right Internal derangement of right knee [facility] Diagnosis LUIS (generalized anxiety disorder) (CMS/HCC)- Primary Generalized anxiety disorder LUIS (generalized anxiety disorder) (CMS/HCC)- Primary Generalized anxiety disorder Mild intermittent asthma without complication (CMS/HCC) Seasonal allergic rhinitis due to pollen MDD (major depressive disorder), recurrent episode, moderate (CMS/HCC)- Primary LUIS (generalized anxiety disorder) (CMS/HCC) Generalized anxiety disorder Chronic pain of right knee Rivas cyst, right Annual physical exam- Primary Routine general medical examination at a health care facility Chronic pain of right knee MDD (major depressive disorder), recurrent episode, moderate (CMS/HCC) [facility] Diagnosis LUIS (generalized anxiety disorder) (CMS/HCC)- Primary Generalized anxiety disorder LUIS (generalized anxiety disorder) (CMS/HCC)- Primary Generalized anxiety disorder Mild intermittent asthma without complication (CMS/HCC) Seasonal allergic rhinitis due to pollen MDD (major depressive disorder), recurrent episode, moderate (CMS/HCC)- Primary LUIS (generalized anxiety disorder) (CMS/HCC) Generalized anxiety disorder Chronic pain of right knee Rivas cyst, right Annual physical exam- Primary Routine general medical examination at a health care facility Chronic pain of right knee MDD (major depressive disorder), recurrent episode, moderate (CMS/HCC) Cervical strain, acute, initial encounter- Primary Acute right flank pain [facility] [employer] Other History general Narrative - Reported* Type Description Date Medical History asthma [facility] [employer] Other Summary Purpose Family History No Family History Records FoundNo Family History Records FoundNo Family History Records Found Advance Directives No Advanced Directives Records FoundNo Advanced Directives Records FoundNo Advanced Directives Records Found Additional Source Comments (unrecognized sect ion and content) No Status Records FoundNo Status Records FoundNo Status Records Found INFORMATION SOURCE (unrecogn ized section and content) DATE CREATED AUTHOR 02/11/2022 [facility] DATE CREATED AUTHOR AUTHOR'S ORGANIZ ATION 08/22/2022 [facility] DATE CREATED AUTHOR AUTHOR'S ORGANIZ ATION 09/27/2024 [facility] Specialists EPIC REASON FOR VISIT (unrecogniz ed section and content) Reason Comments Follow-up 6m Knee Pain Cyst in knee cap Reason Comments Pain Specialty Diagnoses / Procedures Referred By Sonia echeverria Referred To Contact Orthopaedic Surgery Diagnoses Chronic pain of right knee Rivas cyst, right Davonte Rucker MD [address] [place] [address] Phone: tel: fax: Jr. David Daugherty DO [address] [facility] [address] [place] [address] Phone: tel: fax: Referral ID Status Reason Start Date Expiration Date V isits Requested Visits Authorized [id number] Closed Specialty Services Required 08/14/2024 02/10/2025 1 1 Reason Onset Date Comments re: PT 08/28/2024 FU 08/28/2024 FU x2 09/03/2024 Reason Comments Annual Exam WELLNESS Knee Pain RIGHT KNEE Reason Comments Neck Pain Flank Pain Care Teams (unrecognized sec tion and content) Instrument Technician Relationship Specialty Start Date End Date Davonte Rucker MD [address] [place] [phone] PCP - General Family Medicine 10/31/23 Davonte Rucker MD [address] [place] [phone] PCP - Medical [employer] 04/24/23 09/10/99 Instrument Technician Relationship Specialty Start Date End Date Davonte Rucker MD [address] [place] [phone] PCP - General Family Medicine 10/31/23 Davonte Rucker MD [address] [place] [phone] PCP - Medical [employer] 04/24/23 09/10/99 Instrument Technician Relationship Specialty Start Date End Date Davonte Rucker MD [address] [place] [phone] PCP - General Family Medicine 10/31/23 Davonte Rucker MD [address] [place] [phone] PCP - Medical [employer] 04/24/23 09/10/99 Instrument Technician Relationship Specialty Start Date End Date Davonte Rucker MD [address] [place] [address] PCP - General Family Medicine 10/31/23 Davonte Rucker MD [address] [place] [address] PCP - Medical [employer] 04/24/23 09/10/99 Instrument Technician Relationship Specialty Start Date End Date Davonte Rucker MD [address] [place] [address] PCP - General Family Medicine 10/31/23 Davonte Rucker MD [address] [place] [address] PCP - Medical [employer] 04/24/23 09/10/99 Instrument Technician Relationship Specialty Start Date End Date Davonte Rucker MD [address] [place] [address] PCP - General Family Medicine 10/31/23 Davonte Rucker MD [address] [place] [address] PCP - Medical [employer] 04/24/23 09/10/99 Instrument Technician Relationship Specialty Start Date End Date Davonte Rucker MD [address] [place] [address] PCP - General Family Medicine 10/31/23 Davonte Rucker MD [address] [place] [address] PCP - Medical [employer] 04/24/23 09/10/99 Instrument Technician Relationship Specialty Start Date End Date Davonte Rucker MD [address] [place] [phone] PCP - General [facility] 10/31/23 Davonte Rucker MD [address] [place] [phone] PCP - [facility] [employer] 04/24/23 09/10/99 Instrument Technician Relationship Specialty Start Date End Date Davonte Rucker MD [address] [place] [phone] PCP - [facility] 10/31/23 Davonte Rucker MD [address] [place] [phone] PCP - [facility] 04/24/23 09/10/99 FOR RECORDS PERTAINING TO PATIENTS WHO ARE [...] BE BASED ON THE PRIMARY CLINICAL RECORDS. [facility] [employer] [facility]. provides no warranty or guarantee of the accuracy or completeness of information in this document.
[2024-10-04 10:49] LABS: Basophils Percent Auto 0.5 % (0.2-2.0); Eosinophils Absolute Auto 0.2 10^3/uL (0.0-0.7); Eosinophils Percent Auto 2.7 % (0.9-7.0); Hematocrit 45.9 % (42.0-54.0); Immature Granulocytes Abs Auto 0.03 10^3/uL (0.00-0.03); Immature Granulocytes Pct Auto 0.4 % (0.0-0.5); Lymphocytes Absolute Auto 2.4 10^3/uL (1.2-3.8); Lymphocytes Percent Auto 29.9 % (20.5-60.0); Mean Corpuscular HGB Conc 34.9 g/dL (29.9-35.2); Mean Corpuscular Hemoglobin 29.4 pg (25.9-34.0); Mean Corpuscular Volume 84.2 fL (80.0-94.0); Mean Platelet Volume 9.5 fL (9.5-13.5); Monocytes Absolute Auto 0.5 10^3/uL (0.3-0.8); Monocytes Percent Auto 6.3 % (1.7-12.0); Neutrophils Absolute Auto 4.8 10^3/uL (1.4-6.5); Neutrophils Percent Auto 60.2 % (43.0-75.0); Platelet Count 236 10^3/uL (150-450); Red Blood Count 5.45 10^6/uL (4.70-6.10); Red Cell Distribution Width 13.7 % (11.0-15.0); White Blood Count 8.1 10^3/uL (4.0-11.0)
[2024-10-04 11:17] LABS: Estimated Average Glucose 94 mg/dL; Glycohemoglobin A1C 4.9 % (4.5-6.2)
[2024-10-04 11:50] LABS: Alanine Aminotransferase 17 U/L (16-63); Albumin Globulin Ratio 1.1; Albumin Level 3.9 g/dL (3.4-5.0); Alkaline Phosphatase 73 U/L (46-116); Anion Gap 5.8; Aspartate Amino Transferase 9 U/L (15-37); BUN Creatinine Ratio 13.2; Bilirubin Direct 0.1 mg/dL (0.0-0.2); Bilirubin Total 0.5 mg/dL (0.2-1.0); Calcium 9.3 mg/dL (8.5-10.1); Carbon Dioxide 34.9 mmol/L (21.0-32.0); Chloride 103 mmol/L (98-107); Chol HDL Ratio 4.7; Cholesterol 221 mg/dL (<=200); Estimated GFR (African America >60 (>=60 mL/min/1.73m^2); Estimated GFR (Non-African Ame >60 (>=60 mL/min/1.73m^2); Globulin 3.5 g/dL; Glucose 86 mg/dL (74-106); HDL Cholesterol 47 mg/dL (40-60); Potassium 3.7 mmol/L (3.5-5.1); Sodium 140 mmol/L (136-145); TSH W/ REFLEX FT4 1.538 uIU/mL (0.358-3.740); Total Protein 7.4 g/dL (6.4-8.2); Triglycerides 177 mg/dL (<=150); VLDL CHOLESTEROL 35.4 mg/dL
== END 2024-10-04 10:20 | disposition home or self-care (01) ==
LOC: LAB 10:20
PROVIDERS: PCP Family Medicine; Visit Provider Family Medicine
DX: Z00.00 Encounter for general adult medical examination without abnormal findings (principal)
CPT/HCPCS: 36415; 80048; 80061; 80076; 83036; 84443; 85025

== ENCOUNTER 2024-10-11 09:47 | Outpatient (RCR) | payer OTHER, SELFPAY | END 2024-10-12 14:25 | disposition home or self-care (01) | LOC: PT 09:47 | PROVIDERS: PCP Family Medicine; Visit Provider Family Medicine | DX: M25.561 Pain in right knee (principal) | CPT/HCPCS: 97161 ==